=== PATIENT | female | born 1980 | race African-American/Black ===

== ENCOUNTER 2016-06-26 18:32 | Emergency (ER) | payer MEDICARE, MEDICAID ==
[~2016-06-26] VITALS: Ht 175.3 cm; Wt 144.2 kg
[~2016-06-26 18:32] MED LIST: ACET-704 PO; AMOX500T PO; AMOX875T PO; ANTI10DR7 EACH EAR; ASPI-482 PO; CARB1TAB PO; CARV12.5 PO; CEPH-264 PO; CIPR10DR AS; CIPR7.5D AS; HYDR-79 PO; HYDR-971 PO; IBUP800T PO; IRON18TA PO; LISI1TAB3 PO; LISI1TAB5 PO; NEOM10SO7 AS; PENI500T PO
[2016-06-26 18:40] VITALS: BP 144/94
== END 2016-06-26 18:40 | disposition left against medical advice (07) ==
LOC: ER 18:32
DX: Z76.5 Malingerer [conscious simulation] (principal); H92.01 Otalgia, right ear; K08.89 Other specified disorders of teeth and supporting structures; Z53.21 Procedure and treatment not carried out due to patient leaving prior to being seen by health care provider

== ENCOUNTER 2016-07-25 12:33 | Emergency (ER) | payer MEDICARE, MEDICAID ==
[~2016-07-25] VITALS: Ht 175.3 cm; Wt 136.1 kg
[2016-07-25 12:33] VITALS: BP 102/63
[~2016-07-25 12:33] MED LIST changes: -IBUP800T PO; +IBUP800T19 PO
[2016-07-25] MEDS ORDERED: IBUP800T19 PO (13:12)
--- NOTE | 2016-07-25 13:13 | PHYS DOC ---
Past History Past Medical History: CHF, Hypertension, Migraines Past Surgical History: , Other Smoking: Non-smoker Alcohol Use: None Drug Use: None Adult General Chief Complaint Chief Complaint: FLANK PAIN HPI HPI Patient is a 36-year-old female who presents with the complaint of left side pain this morning. Patient states that she has a history of passing kidney stones. She has a urologist at [facility], but her boyfriend lives in this area so she came here today. Patient states that about 4 months ago she had a 24-hour urine that had some stones in it. They told her she still has some stones in her left kidney. They told her she might need a stent but it turned out she didn't. Today she has some urinary frequency and her left side hurts. No nausea or vomiting, no fever or chills. Patient denies , she is on the Depo shot and has had a tubal ligation. Review of Systems Review of Systems Constitutional: Denies fever or chills [] Respiratory: Denies cough or shortness of breath [] GI: Denies abdominal pain, nausea, vomiting, bloody stools or diarrhea [] : As in history of present illness Musculoskeletal: Left flank pain as in history of present illness Allergies Allergies Allergies Coded Allergies Type Severity Reaction Last Updated Verified naproxen Allergy Unknown 09/30/13 Yes propoxyphene HCl Allergy Unknown 09/30/13 Yes tramadol Allergy Unknown 09/30/13 Yes Physical Exam Physical Exam Constitutional: Well developed, well nourished, no acute distress, non-toxic appearance. Morbidly obese, alert, mentating normally. HENT: Normocephalic, atraumatic, bilateral external ears normal, nose normal. [ ] Eyes: conjunctiva normal, no discharge. [] Neck: Normal range of motion, no stridor. [] Abdomen: Obese, nondistended, soft, no masses, no pulsatile masses. Mild tenderness to palpation in the left mid abdomen. No rebound or guarding. Skin: Warm, dry, no erythema, no rash. [] Back: No tenderness, no CVA tenderness. [] Extremities: No tenderness, no cyanosis, no clubbing, ROM intact, no edema. [] Neurologic: Alert and oriented X 3, normal motor function, normal sensory function, no focal deficits noted. [] Current Patient Data Lab Results Laboratory Tests Test 07/25/16 13:00 POC Urine HCG, Qualitative hcg negative (Negative) EKG EKG [] Radiology/Procedures Radiology/Procedures [] Course & Med Decision Making Course & Med Decision Making Pertinent Labs and Imaging studies reviewed. (See chart for details) 36-year-old female with a history of kidney stones presents with left flank pain and urinary frequency. Urine dip in the emergency Department positive for small amount of blood but negative for nitrites and leukocytes. Urine test negative. Patient is in no distress whatsoever. I was able to review the patient's records from [facility] and [facility]. I am familiar with this patient from seeing her at [facility]. A flank pain visit on April 30, 2016, the patient had a CT scan and was found to have 2 small likely intraparenchymal left kidney stones. These don't look like stones that she will be passing. She has had them in the past on CAT scans as well. Also noted that the patient has presented multiple times with pain related complaints to both [facility] and [place] I advised the patient that at this time I would not recommend any further radiation, I have reviewed her records and her previous CT scan. At this time I recommend pushing fluids and ibuprofen 800 mg. I discussed this with the patient and she said she does tolerate ibuprofen even though she had given an allergy to naproxen. Advised follow-up with her urologist as planned. [] Dragon Disclaimer Dragon Disclaimer This chart was dictated in whole or in part using Voice Recognition software in a busy, high-work load, and often noisy Emergency Department environment. It may contain unintended and wholly unrecognized errors or omissions. Departure Departure: Impression: Primary Impression: Left flank pain Additional Impression: Drug-seeking behavior Disposition: HOME, SELF-CARE Condition: STABLE Referrals: PCP,NO (PCP) Patient Instructions: Kidney Stones, [id number] Additional Instructions: As we discussed, I reviewed your CT scan from April 2016, which showed a couple of very tiny stones that do not look like they're likely to pass. Today, I would not recommend any further testing or exposure to radiation and I do not believe any further tests are required. Your urinalysis is negative for infection. Drink plenty of fluids. If needed for pain, ibuprofen 800 mg every 6-8 hours. Follow-up with your urologist. Scripts Ibuprofen 800 Mg Tablet1 Tab PO TID #30 TAB One every 8 hours as needed for pain Prov:CARIE JEFFERS MD 07/25/16 Problem Qualifiers CARIE JEFFERS MD Jul 25, 2016 13:13
[2016-07-25 13:15] LABS: BILIRUBIN,URINE NEG (NEG); COLOR,URINE YELLOW; GLUCOSE,URINE NEG (NEG)
[2016-07-25 13:16] LABS: CLARITY,URINE CLEAR; UROBILINOGEN,URINE 0.2 mg/dL (0.2 mg/dL)
[2016-07-25 13:17] LABS: NITRITE,URINE NEG (NEG)
== END 2016-07-25 13:15 | disposition home or self-care (01) ==
LOC: ER 12:33
DX: R10.9 Unspecified abdominal pain (principal); I11.0 Hypertensive heart disease with heart failure; I50.9 Heart failure, unspecified; G43.909 Migraine, unspecified, not intractable, without status migrainosus; Z87.442 Personal history of urinary calculi; Z76.5 Malingerer [conscious simulation]; Z88.6 Allergy status to analgesic agent; Z88.8 Allergy status to other drugs, medicaments and biological substances
CPT/HCPCS: 81003; 81025; 84703; 99282

== ENCOUNTER 2016-09-22 18:39 | Emergency (ER) | payer MEDICARE, MEDICAID ==
[~2016-09-22] VITALS: Ht 175.3 cm; Wt 136.5 kg
--- NOTE | 2016-09-22 18:53 | PHYS DOC ---
Past History Past Medical History: CHF, Hypertension, Kidney Stones, Migraines Past Surgical History: Tubal ligation Smoking: Non-smoker Alcohol Use: None Drug Use: None Adult General Chief Complaint Chief Complaint: ABSCESS HPI HPI 36-year-old female with a history of skin abscesses now presents to the emergency department with a skin abscess in her right armpit. She has a small knot which has become painful. No spontaneous drainage. It is locally tender but patient has no fevers chills sweats or shaking chills. She otherwise feels well Review of Systems Review of Systems Constitutional: Denies fever or chills [] Eyes: Denies change in visual acuity, redness, or eye pain [] HENT: Denies nasal congestion or sore throat [] Respiratory: Denies cough or shortness of breath [] Cardiovascular: No additional information not addressed in HPI [] GI: Denies abdominal pain, nausea, vomiting, bloody stools or diarrhea [] : Denies dysuria or hematuria [] Musculoskeletal: Denies back pain or joint pain [] Integument: Denies rash or skin lesions [] Neurologic: Denies headache, focal weakness or sensory changes [] Endocrine: Denies polyuria or polydipsia [] Allergies Allergies Allergies Coded Allergies Type Severity Reaction Last Updated Verified naproxen Allergy Unknown 09/30/13 Yes propoxyphene HCl Allergy Unknown 09/30/13 Yes tramadol Allergy Unknown 09/30/13 Yes Physical Exam Physical Exam Appearing patient no acute distress 1 cm abscess with trace fluctuance right axilla no surrounding erythema, warmth, or crepitus. No right upper extremity swelling or abnormality Constitutional: Well developed, well nourished, no acute distress, non-toxic appearance. [] HENT: Normocephalic, atraumatic, bilateral external ears normal, oropharynx moist, no oral exudates, nose normal. [] Eyes: PERRLA, EOMI, conjunctiva normal, no discharge. [] Neck: Normal range of motion, no tenderness, supple, no stridor. [] Cardiovascular:Heart rate regular rhythm, no murmur [] Lungs & Thorax: Bilateral breath sounds clear to auscultation [] Abdomen: Bowel sounds normal, soft, no tenderness, no masses, no pulsatile masses. [] Skin: Warm, dry, no erythema, no rash. [] Back: No tenderness, no CVA tenderness. [] Extremities: No tenderness, no cyanosis, no clubbing, ROM intact, no edema. [] Neurologic: Alert and oriented X 3, normal motor function, normal sensory function, no focal deficits noted. [] Psychologic: Affect normal, judgement normal, mood normal. [] EKG EKG [] Radiology/Procedures Radiology/Procedures [] Course & Med Decision Making Course & Med Decision Making Pertinent Labs and Imaging studies reviewed. (See chart for details) Signs and symptoms consistent with very minor early abscess right axilla. Let applied and tiny stab incision made with a #11 blade which patient tolerated well. Small amount of purulent drainage. Hemostatic after procedure. Patient tolerated well. Dressing applied and no further workup or treatment indicated. Patient aware of critical importance of compliance with antibiotics and close follow-up with PCP for reevaluation and further treatment as needed. Strict return precautions given Procedure: Incision and drainage of 1 cm right axillary abscess by ER M.Naveen. Patient sitting. Let applied. Good anesthesia. 3 mm stab incision made superficial in subcutaneously with a #11 blade. Small amount of purulent drainage. Pressure applied. Hemostatic. Patient tolerated well. No complications [] Dragon Disclaimer Dragon Disclaimer This chart was dictated in whole or in part using Voice Recognition software in a busy, high-work load, and often noisy Emergency Department environment. It may contain unintended and wholly unrecognized errors or omissions. Departure Departure: Impression: Primary Impression: Axillary abscess Referrals: KATELIN SAHA MD (PCP) Patient Instructions: Abscess, Abscess, Care After Additional Instructions: He had a very small abscess in her right armpit. This was incised and drained today. A tiny amount of pus came out. Apply warm compresses and soaks. Keep any crust or scab off the wound while its healing and encourage drainage so it heals from the inside out. Finish Bactrim as prescribed and take ibuprofen 800 mg every 6 hours as needed for pain. If he still have uncontrolled pain take one [place] every 6 hours follow-up with your doctor in 2 days for a wound check and return immediately for signs of worsening infection specifically for fevers / vomiting, other systemic signs of illness Scripts Sulfamethoxazole/Trimethoprim (BACTRIM DS TABLET) 1 Each Tablet 2 EACH PO BID for 10 Days, #40 TAB Prov: TUAN SAEED MD 09/22/16 Sulfamethoxazole/Trimethoprim (BACTRIM DS TABLET) 1 Each Tablet 1 TAB PO BID, #20 TAB Prov: TUAN SAEED MD 09/22/16 Hydrocodone/Ibuprofen (HYDROCODONE-IBUPROFEN 7.5-200 ) 1 Each Tablet 1 TAB PO PRN Q6HRS Y for PAIN, #6 TAB 0 Refills Prov: TUAN SAEED MD 09/22/16 TUAN SAEED MD Sep 22, 2016 18:53
[2016-09-22 19:03] VITALS: BP 174/98
[2016-09-22] MEDS ORDERED: LIDOCAINE/EPI/TETRACAINE TOPICAL GEL 3 ML. TP ONE (19:30)
[2016-09-22] MEDS ORDERED: HYDROcodone/APAP 5/325MG 1 TAB TABLET PO ONE (19:30)
[2016-09-22] MEDS ORDERED: HYDR-79 PO (20:10)
[2016-09-22] MEDS ORDERED: SULF1TAB24 PO (20:10)
== END 2016-09-22 20:14 | disposition home or self-care (01) ==
LOC: ER 18:39
DX: L02.411 Cutaneous abscess of right axilla (principal); I11.0 Hypertensive heart disease with heart failure; I50.9 Heart failure, unspecified; G43.909 Migraine, unspecified, not intractable, without status migrainosus; Z87.442 Personal history of urinary calculi; Z88.6 Allergy status to analgesic agent; Z88.8 Allergy status to other drugs, medicaments and biological substances
CPT/HCPCS: 10060; 99283-25

== ENCOUNTER 2016-11-13 19:08 | Emergency (ER) | payer MEDICARE, MEDICAID ==
[~2016-11-13] VITALS: Ht 175.3 cm; Wt 144.2 kg
[~2016-11-13 19:08] MED LIST changes: +SULF1TAB24 PO
[2016-11-13 19:24] VITALS: BP 158/96
[2016-11-13] MEDS ORDERED: AMOX1TAB61 PO (19:39)
--- NOTE | 2016-11-13 19:42 | PHYS DOC ---
Past History Past Medical History: Hypertension, Migraines, Other Past Surgical History: , Other Smoking: Non-smoker Alcohol Use: None Drug Use: None Adult General Chief Complaint Chief Complaint: DENTAL PROBLEM HPI HPI Patient is a 36 year old F who presents with dental pain. She has had multiple teeth removed in the past. She states that her left lower canine has been intermittently hurting for approximately 4 weeks. She states that she is able to chew on that side of her mouth. She does have a dentist to follow-up with but has had family issues making it difficult for her to see her dentist. No other symptoms noted. Review of Systems Review of Systems Constitutional: Denies fever or chills [] Eyes: Denies change in visual acuity, redness, or eye pain [] HENT: Denies nasal congestion or sore throat [] Respiratory: Denies cough or shortness of breath [] Cardiovascular: No additional information not addressed in HPI [] GI: Denies abdominal pain, nausea, vomiting, bloody stools or diarrhea [] : Denies dysuria or hematuria [] Musculoskeletal: Denies back pain or joint pain [] Integument: Denies rash or skin lesions [] Neurologic: Denies headache, focal weakness or sensory changes [] Endocrine: Denies polyuria or polydipsia [] Family History Family History Noncontributory Current Medications Current Medications Reviewed Allergies Allergies Allergies Coded Allergies Type Severity Reaction Last Updated Verified naproxen Allergy Unknown 09/22/16 Yes propoxyphene HCl Allergy Unknown 09/22/16 Yes tramadol Allergy Unknown 09/22/16 Yes Physical Exam Physical Exam Constitutional: Well developed, well nourished, no acute distress, non-toxic appearance. [] HENT: Normocephalic, atraumatic, bilateral external ears normal, oropharynx moist, no oral exudates, nose normal. [] Molars and premolars removed on the lower right and left. Left lower canine reported to have pain without obvious signs of cavity or come disease. Pain noted with palpation Eyes: PERRLA, EOMI, conjunctiva normal, no discharge. [] Cardiovascular:Heart rate regular rhythm, no murmur [] Lungs & Thorax: Bilateral breath sounds clear to auscultation [] Skin: Warm, dry, no erythema, no rash. [] Extremities: No tenderness, no cyanosis, no clubbing, ROM intact, no edema. [] Neurologic: Alert and oriented X 3, normal motor function, normal sensory function, no focal deficits noted. [] Psychologic: Affect normal, judgement normal, mood normal. [] Current Patient Data Vital Signs Vital Signs Date Time Temp Pulse Resp B/P (MAP) Pulse Ox O2 Delivery O2 Flow Rate FiO2 11/13/16 19:24 98.2 96 20 99 Room Air Course & Med Decision Making Course & Med Decision Making Pertinent Labs and Imaging studies reviewed. (See chart for details) Dragon Disclaimer Dragon Disclaimer This chart was dictated in whole or in part using Voice Recognition software in a busy, high-work load, and often noisy Emergency Department environment. It may contain unintended and wholly unrecognized errors or omissions. Departure Departure: Impression: Primary Impression: Pain, dental Disposition: HOME, SELF-CARE Condition: STABLE Referrals: KATELIN SAHA MD (PCP) Patient Instructions: Dental Caries Additional Instructions: Clifton was seen in the emergency room for dental pain. No emergency medical condition was found on history or physical exam. Her symptoms are suspicious for a dental infection for which she was given an antibiotic. She was advised to follow-up with her dentist as soon as possible for further management. Scripts Amoxicillin/Potassium Clav (AUGMENTIN 875-125 TABLET) 1 Each Tablet 1 TAB PO BID for 14 Days, #28 TAB Prov: DANIELLE REDD MD 11/13/16 DANIELLE REDD MD Nov 13, 2016 19:41
== END 2016-11-13 19:50 | disposition home or self-care (01) ==
LOC: ER 19:08
DX: K08.89 Other specified disorders of teeth and supporting structures (principal); I10 Essential (primary) hypertension; G43.909 Migraine, unspecified, not intractable, without status migrainosus; Z88.6 Allergy status to analgesic agent; Z88.8 Allergy status to other drugs, medicaments and biological substances
CPT/HCPCS: 99283

== ENCOUNTER 2017-01-30 16:33 | Emergency (ER) | payer MEDICARE, MEDICAID ==
[~2017-01-30] VITALS: Ht 175.3 cm; Wt 144.2 kg
[~2017-01-30 16:33] MED LIST changes: +AMOX1TAB61 PO
[2017-01-30 17:00] VITALS: BP 186/110
[2017-01-30] MEDS ORDERED: HYDR-971 PO (17:21)
[2017-01-30] MEDS ORDERED: CLIN150C14 PO (17:21)
--- NOTE | 2017-01-30 17:21 | PHYS DOC ---
Past History Past Medical History: Hypertension, Migraines, Other Past Surgical History: , Other Smoking: Non-smoker Alcohol Use: None Drug Use: None Adult General Chief Complaint Chief Complaint: DENTAL PROBLEM HPI HPI Patient is a 37 year old female who presents with dental pain. The patient reports 2 day history of pain to left mandibular tooth with jaw swelling. Denies fevers/chills, nausea vomiting, drainage, trismus. Also reports painful swelling to right axilla which is a recurrent problem. Denies fevers, drainage. She has history of hypertension & reports compliance with her medications, denies headache, chest pain, shortness of breath, neuro deficit. Review of Systems Review of Systems Constitutional: Denies fever or chills Eyes: Denies change in visual acuity HENT: Denies nasal congestion or sore throat, reports dental pain Respiratory: Denies cough or shortness of breath Cardiovascular: Denies chest pain GI: Denies abdominal pain, nausea, vomiting Musculoskeletal: Denies back pain or joint pain Integument: Reports skin problem in axilla Neurologic: Denies headache, focal weakness or sensory changes Allergies Allergies Allergies Coded Allergies Type Severity Reaction Last Updated Verified naproxen Allergy Unknown 09/22/16 Yes propoxyphene HCl Allergy Unknown 09/22/16 Yes tramadol Allergy Unknown 09/22/16 Yes Physical Exam Physical Exam Constitutional: obese, no acute distress, non-toxic appearance. HENT: Normocephalic, atraumatic, bilateral external ears normal, oropharynx moist, nose normal. tooth #24 with mild surrounding gingival erythema, jaw swelling is present no trismus. Eyes: conjunctiva normal, no discharge. Cardiovascular: no edema. Lungs & Thorax: no respiratory distress. Abdomen: nondistended. Skin: right axilla tiny inflamed hair follicle with surrounding mild induration , no palpable abscess. Back: No tenderness. Extremities: No tenderness, no edema. Neurologic: Alert and oriented X 3, no focal deficits noted. Psychologic: Affect normal, judgement normal, mood normal. EKG EKG [] Radiology/Procedures Radiology/Procedures [] Course & Med Decision Making Course & Med Decision Making Pertinent Labs and Imaging studies reviewed. (See chart for details) The patient presents with dental pain & folliculitis. Gave prescription for clindamycin to cover for both. Recommend ibuprofen for pain, norco for severe pain, follow up with dentist & general surgery or PCP in 2-3 days. BP elevated here but she is asymptomatic, recommend compliance with meds, can be rechecked by PCP at time of follow up. Come back for difficulty breathing or swallowing, worsening cellulitis surrounding folliculitis, any otherwise worsening condition. Discharged home in stable condition. Dragon Disclaimer Dragon Disclaimer This chart was dictated in whole or in part using Voice Recognition software in a busy, high-work load, and often noisy Emergency Department environment. It may contain unintended and wholly unrecognized errors or omissions. Departure Departure: Impression: Primary Impression: Dentalgia Additional Impression: Folliculitis of right axilla Disposition: HOME, SELF-CARE Condition: STABLE Referrals: KATELIN SAHA MD (PCP) Patient Instructions: Dental Pain, [id number], Folliculitis Additional Instructions: You were seen in the emergency department today for dental pain & infected hair follicle. Please take the prescribed antibiotic. Continue ibuprofen for pain/ inflammation, use norco for severe breakthrough pain; no drinking alcohol or driving while taking norco. Follow up with a dentist as soon as possible for dental pain/infection, agree with plan to follow up with Dr. Fernandez for recurrent infections of armpit. Come back for high fever, uncontrolled vomiting , difficulty breathing or swallowing, or any otherwise worsening condition. Scripts Hydrocodone Bit/Acetaminophen (NORCO 5-325 TABLET) 1 Each Tablet 1-2 TAB PO Q4-6HRS Y for SEVERE PAIN, #10 TAB Prov: BERNARD ROBBINS MD 01/30/17 Clindamycin Hcl (CLINDAMYCIN HCL) 150 Mg Capsule 3 CAP PO TID for 7 Days, #63 CAP Prov: BERNARD ROBBINS MD 01/30/17 Problem Qualifiers BERNARD ROBBINS MD Jan 30, 2017 17:21
[2017-01-30] MEDS ORDERED: CLINDAMYCIN HCL 150 MG CAPSULE PO ONE (17:30)
[2017-01-30] MEDS ORDERED: HYDROcodone/APAP 5/325MG 1 TAB TABLET PO ONE (17:30)
== END 2017-01-30 17:33 | disposition home or self-care (01) ==
LOC: ER 16:33
DX: K08.89 Other specified disorders of teeth and supporting structures (principal); L02.421 Furuncle of right axilla; I10 Essential (primary) hypertension; G43.909 Migraine, unspecified, not intractable, without status migrainosus; Z88.6 Allergy status to analgesic agent; Z88.8 Allergy status to other drugs, medicaments and biological substances
CPT/HCPCS: 99283

== ENCOUNTER 2017-03-13 17:48 | Emergency (ER) | payer MEDICARE, MEDICAID ==
[~2017-03-13] VITALS: Ht 175.3 cm; Wt 144.2 kg
[~2017-03-13 17:48] MED LIST changes: +CLIN150C14 PO
[2017-03-13 17:50] VITALS: BP 166/122
--- NOTE | 2017-03-13 18:48 | ED.ADGEN ---
Past History Past Medical History: Hypertension, Migraines, Other Past Surgical History: , Other Smoking: Non-smoker Alcohol Use: None Drug Use: None Adult General Chief Complaint Chief Complaint "This tooth is hurting .. I got a dental apt... but my face is swollen HPI HPI Patient is a 37 year old female who presents with above hx and complaints of pain and edema of area of tooth 21. No trismus. No adenopathy at ankle jaw. Does have swelling over mandible on the left. No history immunosuppression. No history of travel. Does have a follow-up dental appointment. Review of Systems Review of Systems Constitutional: Denies fever or chills [] Eyes: Denies change in visual acuity, redness, or eye pain [] HENT: Denies nasal congestion or sore throat []complaints of dental pain Respiratory: Denies cough or shortness of breath [] Cardiovascular: No additional information not addressed in HPI [] GI: Denies abdominal pain, nausea, vomiting, bloody stools or diarrhea [] : Denies dysuria or hematuria [] Musculoskeletal: Denies back pain or joint pain [] Integument: Denies rash or skin lesions [] Neurologic: Denies headache, focal weakness or sensory changes [] Endocrine: Denies polyuria or polydipsia [] All other systems were reviewed and found to be within normal limits, except as documented in this note. Family History Family History Noncontributory Current Medications Current Medications Current Medications Medications (Trade) Dose Ordered Sig/Jaden Start Time Stop Time Status Last Admin Dose Admin Cephalexin HCl (Keflex) 500 mg 1X ONCE 03/13/17 18:45 03/13/17 18:48 DC 03/13/17 18:59 500 MG Oxycodone/ Acetaminophen (Percocet 10/325) 1 tab 1X ONCE 03/13/17 18:45 03/13/17 18:49 DC 03/13/17 18:59 1 TAB Allergies Allergies Allergies Coded Allergies Type Severity Reaction Last Updated Verified naproxen Allergy Unknown 09/22/16 Yes propoxyphene HCl Allergy Unknown 09/22/16 Yes tramadol Allergy Unknown 09/22/16 Yes Physical Exam Physical Exam Constitutional: inacute distress, non-toxic appearance. [] HENT: Normocephalic, atraumatic, bilateral external ears normal, oropharynx moist, no oral exudates, nose normal. Dental exam as per history of present illness Eyes: PERRLA, EOMI, conjunctiva normal, no discharge. [] Neck: Normal range of motion, no tenderness, supple, no stridor. [] Cardiovascular:Heart rate regular rhythm, no murmur [] Lungs & Thorax: Bilateral breath sounds clear to auscultation [] Abdomen: Bowel sounds normal, soft, no tenderness, no masses, no pulsatile masses. Scar. Obese Skin: Warm, dry, no erythema, no rash. [] Back: No tenderness, no CVA tenderness. [] Extremities: No tenderness, no cyanosis, no clubbing, ROM intact, no edema. [] Neurologic: Alert and oriented X 3, normal motor function, normal sensory function, no focal deficits noted. [] Psychologic: Affect anxious, judgement normal, mood normal. [] Current Patient Data Vital Signs Vital Signs Date Time Temp Pulse Resp B/P (MAP) Pulse Ox O2 Delivery O2 Flow Rate FiO2 03/13/17 19:00 98.5 110 20 142/101 (115) 99 Room Air EKG EKG [] Radiology/Procedures Radiology/Procedures [] Course & Med Decision Making Course & Med Decision Making Pertinent Labs and Imaging studies reviewed. (See chart for details). Take Keflex 500 mg 3 times a day x 10 days. . May take Tylenol and ibuprofen for pain. For marked pain may take Percocet up 4 times a day. Follow-up with James. Return if any concerns. [] Final Impression Final Impression 1. Dental pain[] Problems: Dragon Disclaimer Dragon Disclaimer This electronic medical record was generated, in whole or in part, using a voice recognition dictation system. PRINCESS ARCHIBALD MD Mar 13, 2017 18:47
[2017-03-13] MEDS ORDERED: OXYC-328 PO (18:49)
[2017-03-13] MEDS ORDERED: CEPH-264 PO (18:49)
[2017-03-13] MEDS: CEPHALEXIN 250 MG CAPSULE PO ONE (18:59)
[2017-03-13] MEDS: oxyCODONE/APAP 10/325 1 TAB TABLET PO ONE (18:59)
== END 2017-03-13 19:05 | disposition home or self-care (01) ==
LOC: ER 17:48
DX: K08.89 Other specified disorders of teeth and supporting structures (principal); I10 Essential (primary) hypertension; G43.909 Migraine, unspecified, not intractable, without status migrainosus; Z88.6 Allergy status to analgesic agent; Z88.8 Allergy status to other drugs, medicaments and biological substances
CPT/HCPCS: 99283

== ENCOUNTER 2017-03-26 18:10 | Emergency (ER) | payer MEDICARE, MEDICAID ==
[~2017-03-26] VITALS: Ht 175.3 cm; Wt 144.2 kg
[~2017-03-26 18:10] MED LIST changes: +OXYC-328 PO
[2017-03-26] MEDS ORDERED: AZIT1PAC PO (18:26)
--- NOTE | 2017-03-26 18:27 | PHYS DOC ---
Past History Past Medical History: Hypertension, Migraines, Other Past Surgical History: , Other Smoking: Non-smoker Alcohol Use: None Drug Use: None Adult General Chief Complaint Chief Complaint: EARACHE/EAR PAIN HPI HPI Patient is a 37 year old F who presents with left ear pain and drainage. Patient states that since Celena which was approximately 4 days ago she did have an increase left ear pain and increased drainage since yesterday. Patient denies any fevers. Patient denies any difficulty swallowing. Patient denies any headache or vision changes. Patient denies any chest pain or shortness of breath. Patient has no other complaints at this time. Review of Systems Review of Systems GEN: Denies fevers, chills, sweats HEENT: Left ear pain CV: Denies chest pain RESP: Denies shortness of air, cough GI: Denies n/v/d NEURO: Denies confusion, dizziness MSK: Denies weakness, joint pain/swelling All other systems were reviewed and found to be within normal limits, except as documented in this note. Allergies Allergies Allergies Coded Allergies Type Severity Reaction Last Updated Verified naproxen Allergy Unknown 09/22/16 Yes propoxyphene HCl Allergy Unknown 09/22/16 Yes tramadol Allergy Unknown 09/22/16 Yes Physical Exam Physical Exam GEN.: No apparent distress. Alert and oriented. HEENT: Head is normocephalic, atraumatic, right TM clear, left TM is cloudy with purulent drainage consistent with otitis media NECK: Supple. LUNGS: CTAB. HEART: RRR, S1, S2 present. Peripheral pulses intact ABDOMEN: Soft, nontender. Positive bowel sounds. EXTREMITIES: Without any cyanosis. NEUROLOGIC: Normal speech, normal tone PSYCHIATRIC: Normal affect, normal mood. SKIN: No ulcerations EKG EKG [] Radiology/Procedures Radiology/Procedures [] Course & Med Decision Making Course & Med Decision Making Pertinent Labs and Imaging studies reviewed. (See chart for details) MDM: After reviewing the chart, CC/HPI/PMH, physical exam, I do not believe the patient has a severe bacterial infection warranting further workup and/or admission at this time. I believe patient has a simple left ear infection treated oral antibiotics and discharged home. Additional verbal discharge instructions were provided to the patient and that if symptoms get worse or any new symptoms arise that are worrisome to the patient she is to return to the emergency room immediately [] Dragon Disclaimer Lilian Disclaimer This electronic medical record was generated, in whole or in part, using a voice recognition dictation system. Departure Departure: Impression: Primary Impression: Left serous otitis media Disposition: HOME, SELF-CARE Condition: IMPROVED Referrals: PCP,NO (PCP) Patient Instructions: Otitis Media, Adult Additional Instructions: Please follow-up with your family physician in the next one to 2 days and return if symptoms increase Scripts Azithromycin (ZITHROMAX PACKET) 1 Gm Packet 1 PACKET PO ONCE, #1 PACKET Prov: BOBBI TRISTAN DO 03/26/17 BOBBI TRISTAN DO Mar 26, 2017 18:27
[2017-03-26 18:31] VITALS: BP 126/83
== END 2017-03-26 18:31 | disposition home or self-care (01) ==
LOC: ER 18:10
DX: H65.92 Unspecified nonsuppurative otitis media, left ear (principal); I10 Essential (primary) hypertension; G43.909 Migraine, unspecified, not intractable, without status migrainosus; Z88.6 Allergy status to analgesic agent; Z88.8 Allergy status to other drugs, medicaments and biological substances
CPT/HCPCS: 99283

== ENCOUNTER 2017-05-01 20:15 | Emergency (ER) | payer MEDICARE, MEDICAID ==
[~2017-05-01] VITALS: Ht 175.3 cm; Wt 144.2 kg
[~2017-05-01 20:15] MED LIST changes: +AZIT1PAC PO
--- NOTE | 2017-05-01 20:21 | PHYS DOC ---
Past History Past Medical History: Hypertension, Migraines, Other Past Surgical History: , Tubal ligation, Other Smoking: Non-smoker Alcohol Use: None Drug Use: None Adult General Chief Complaint Chief Complaint: EARACHE/EAR PAIN HPI HPI Patient is a 37 year old female who presents with in your pain. She states it started about a week ago she noticed yesterday some ear discharge out of the left side. She also complains of some dental pain. She denies any fevers chills nausea vomiting. She denies any changes in voice troubles eating or swallowing. She has an ears nose and throat physician and started taking neomycin eardrops yesterday. Review of Systems Review of Systems Constitutional: Denies fever or chills [] Eyes: Denies change in visual acuity, redness, or eye pain [] HENT: Denies nasal congestion or sore throat [] Respiratory: Denies cough or shortness of breath [] Cardiovascular: No additional information not addressed in HPI [] GI: Denies abdominal pain, nausea, vomiting, bloody stools or diarrhea [] : Denies dysuria or hematuria [] Musculoskeletal: Denies back pain or joint pain [] Integument: Denies rash or skin lesions [] Neurologic: Denies headache, focal weakness or sensory changes [] Endocrine: Denies polyuria or polydipsia [] All other systems were reviewed and found to be within normal limits, except as documented in this note. Allergies Allergies Allergies Coded Allergies Type Severity Reaction Last Updated Verified naproxen Allergy Unknown 09/22/16 Yes propoxyphene HCl Allergy Unknown 09/22/16 Yes tramadol Allergy Unknown 09/22/16 Yes Physical Exam Physical Exam Constitutional: Well developed, well nourished, no acute distress, non-toxic appearance. [] HENT: Normocephalic, atraumatic, bilateral external ears normal, oropharynx moist, no oral exudates, nose normal. Left TM mildly injected, right TM clear, posterior pharynx clear, tender palpation in the left lower jaw around tooth #20 , no apical abscess or mass appreciated, no Darrion angina noted, patient handling secretions without difficulty Eyes: PERRLA, EOMI, conjunctiva normal, no discharge. [] Neck: Normal range of motion, no tenderness, supple, no stridor. [] Cardiovascular:Heart rate regular rhythm, no murmur [] Lungs & Thorax: Bilateral breath sounds clear to auscultation [] Abdomen: Bowel sounds normal, soft, no tenderness, no masses, no pulsatile masses. [] Skin: Warm, dry, no erythema, no rash. [] Back: No tenderness, no CVA tenderness. [] Extremities: No tenderness, no cyanosis, no clubbing, ROM intact, no edema. [] Neurologic: Alert and oriented X 3, normal motor function, normal sensory function, no focal deficits noted. [] Psychologic: Affect normal, judgement normal, mood normal. [] EKG EKG [] Radiology/Procedures Radiology/Procedures [] Impressions: Left otitis media Dental pain Course & Med Decision Making Course & Med Decision Making Pertinent Labs and Imaging studies reviewed. (See chart for details) We'll give 1 dose of Augmentin 875 here and discharged with 10 days of Augmentin in addition to 12 tablets of 5/325 Salem. Return precautions given. She is to follow-up with her ENT within the next 5 days. She is agreeable to the plan and being discharged in stable condition at this time. Dragon Disclaimer Dragon Disclaimer This electronic medical record was generated, in whole or in part, using a voice recognition dictation system. Departure Departure: Impression: Primary Impression: Otitis media Disposition: 01 HOME, SELF-CARE Condition: STABLE Referrals: PCPBETTE (PCP) Patient Instructions: Otitis Media, Adult, [id number] Additional Instructions: Your ear looks infected and you will need take antibiotics for the next 10 days. Your being discharged with Augmentin which is an antibiotic, You will need to take it twice a day. You can also take Salem for your pain. Salem is a narcotic pain medicine and can impair your judgment and make you sleepy. Please don't drive or drink alcohol while taking this medicine. If your pain gets worse , you become confused, you develop high fevers, neck stiffness or other concerns please return back to emergency department. You will need to follow-up with her ears nose and throat physician within the next 5 days. Scripts Amoxicillin/Potassium Clav (AUGMENTIN 875-125 TABLET) 1 Each Tablet 1 TAB PO BID, #20 TAB Prov: ANALIA LEAHY MD 05/01/17 Hydrocodone Bit/Acetaminophen (NORCO 5-325 TABLET) 1 Each Tablet 1-2 TAB PO PRN Q6HRS Y for PAIN, #12 TAB 0 Refills Prov: ANALIA LEAHY MD 05/01/17 Problem Qualifiers Primary Impression: Otitis media Otitis media type: unspecified Chronicity: acute Qualified Codes: H66.90 - Otitis media, unspecified, unspecified ear ANALIA LEAHY MD May 01, 2017 20:21
[2017-05-01] MEDS ORDERED: AMOX1TAB61 PO (20:34)
[2017-05-01] MEDS ORDERED: HYDR-971 PO (20:34)
[2017-05-01 20:39] VITALS: BP 130/86
[2017-05-01] MEDS ORDERED: AMOXICILLIN/K CLAV 875/125MG TABLET. PO ONE (21:00)
== END 2017-05-01 20:39 | disposition home or self-care (01) ==
LOC: ER 20:15
DX: H66.92 Otitis media, unspecified, left ear (principal); I10 Essential (primary) hypertension; G43.909 Migraine, unspecified, not intractable, without status migrainosus; Z88.6 Allergy status to analgesic agent; Z88.8 Allergy status to other drugs, medicaments and biological substances
CPT/HCPCS: 99283

== ENCOUNTER 2017-06-05 20:14 | Emergency (ER) | payer MEDICARE, MEDICAID ==
[~2017-06-05] VITALS: Ht 175.3 cm; Wt 144.2 kg
--- NOTE | 2017-06-05 21:01 | ED.ADGEN ---
Past History Past Medical History: Hypertension, Migraines, Other Past Surgical History: , Tubal ligation, Other Smoking: Non-smoker Alcohol Use: None Drug Use: None Adult General Chief Complaint Chief Complaint " I got this bump under my arm...I usually have to get started on bactrim.. and my BP is up because it hurts...and I ve not taken my BP meds...' HPI HPI Patient is a 37 year old female who presents with adenopathy and cellulitis under Rt. axillary. Patient has had problems previously with cellulitis and adenopathy and abscesses under her axillary areas after shaving. Patient denies any history of immunosuppression. Patient denies any travel. Patient up- to-date with vaccinations normally follows at [facility] for care. Review of Systems Review of Systems Constitutional: Denies fever or chills [] Eyes: Denies change in visual acuity, redness, or eye pain [] HENT: Denies nasal congestion or sore throat [] Respiratory: Denies cough or shortness of breath [] Cardiovascular: No additional information not addressed in HPI [] GI: Denies abdominal pain, nausea, vomiting, bloody stools or diarrhea [] : Denies dysuria or hematuria [] Musculoskeletal: Denies back pain or joint pain [] Integument: Right axillary cellulitis and adenopathy Neurologic: Denies headache, focal weakness or sensory changes [] Endocrine: Denies polyuria or polydipsia [] All other systems were reviewed and found to be within normal limits, except as documented in this note. Family History Family History Noncontributory Current Medications Current Medications Current Medications Medications (Trade) Dose Ordered Sig/Jaden Start Time Stop Time Status Last Admin Dose Admin Hydrocodone Bitartrate/ Ibuprofen (Vicoprofen 7.5-200) 1 tab STK-MED ONCE 06/05/17 21:33 06/05/17 21:34 DC Trimethoprim/ Sulfamethoxazole (Bactrim Ds) 1 tab STK-MED ONCE 06/05/17 21:32 06/05/17 21:33 DC Allergies Allergies Allergies Coded Allergies Type Severity Reaction Last Updated Verified naproxen Allergy Intermediate 06/05/17 Yes propoxyphene HCl Allergy Intermediate 06/05/17 Yes tramadol Allergy Intermediate 06/05/17 Yes Physical Exam Physical Exam Constitutional: Mild distress, non-toxic appearance. [] HENT: Normocephalic, atraumatic, bilateral external ears normal, oropharynx moist, no oral exudates, nose normal. [] Eyes: PERRLA, EOMI, conjunctiva normal, no discharge. [] Neck: Normal range of motion, no tenderness, supple, no stridor. More than 17 inches circumference Cardiovascular:Heart rate regular rhythm, no murmur [] Lungs & Thorax: Bilateral breath sounds clear to auscultation [] No obvious breast lesions appreciated. Abdomen: Bowel sounds normal, soft, no tenderness, no masses, no pulsatile masses. Morbid obesity. Old surgery scars. Skin: Warm, dry, no erythema, no rash. [ Rt. axillary cellulitis Back: No tenderness, no CVA tenderness. [] Extremities: Rt. axillary tenderness, no cyanosis, no clubbing, ROM intact, no edema. [] Neurologic: Alert and oriented X 3, normal motor function, normal sensory function, no focal deficits noted. [] Psychologic: Affect anxious, judgement normal, mood normal. [] Current Patient Data Vital Signs Vital Signs Date Time Temp Pulse Resp B/P (MAP) Pulse Ox O2 Delivery O2 Flow Rate FiO2 06/05/17 20:30 97.7 101 20 99 Room Air EKG EKG [] Radiology/Procedures Radiology/Procedures [] Course & Med Decision Making Course & Med Decision Making Pertinent Labs and Imaging studies reviewed. (See chart for details) patient take Bactrim DS twice a day for the next 10 days. Patient to not shave axillary areas. Patient to follow-up at [facility]. Patient return if any concerns. Patient to take her hypertensive meds as directed. Patient return if any concerns. Patient encouraged to get mammogram. And instructed that axillary adenopathy may represent a breast disorder such as cancer and must follow-up. Patient instructed to not use anti perspiration deodorant[s] Final Impression Final Impression 1. Cellulitis 2. HTN[] Problems: Dragon Disclaimer Dragon Disclaimer This electronic medical record was generated, in whole or in part, using a voice recognition dictation system. PRINCESS ARCHIBALD MD Jun 05, 2017 21:00
[2017-06-05] MEDS ORDERED: SULF1TAB24 PO (21:05)
[2017-06-05] MEDS ORDERED: HYDR-79 PO (21:05)
[2017-06-05 21:30] VITALS: BP 148/84
[2017-06-05] MEDS ORDERED: SMZ/TMP 800/160MG TABLET. PO ONE ×2 (21:32→22:00)
[2017-06-05] MEDS ORDERED: HYDROcodon/IBUPROFEN 7.5/200MG 1 TAB TABLET ONE (21:33)
[2017-06-05] MEDS ORDERED: HYDROcodon/IBUPROFEN 7.5/200MG 1 TAB TABLET PO ONE (21:45)
== END 2017-06-05 21:36 | disposition home or self-care (01) ==
LOC: ER 20:14
DX: L03.111 Cellulitis of right axilla (principal); R59.9 Enlarged lymph nodes, unspecified; I10 Essential (primary) hypertension; G43.909 Migraine, unspecified, not intractable, without status migrainosus; Z88.6 Allergy status to analgesic agent; Z88.8 Allergy status to other drugs, medicaments and biological substances
CPT/HCPCS: 99283

== ENCOUNTER 2017-06-26 18:25 | Emergency (ER) | payer MEDICAID, MEDICARE ==
[~2017-06-26] VITALS: Ht 175.3 cm; Wt 144.2 kg
[2017-06-26 18:46] VITALS: BP 153/120
[2017-06-26] MEDS ORDERED: PENICILLIN V K 250 MG TABLET. PO ONE (19:00)
[2017-06-26] MEDS ORDERED: KETOROLAC 60 MG/2 ML VIAL. IM ONE (19:00)
[2017-06-26] MEDS ORDERED: PENI500T PO (19:08)
--- NOTE | 2017-06-26 19:08 | PHYS DOC ---
Past History Past Medical History: CAD, Hypertension, Migraines, Other Past Surgical History: , Tubal ligation, Other Smoking: Non-smoker Alcohol Use: None Drug Use: None Adult General Chief Complaint Chief Complaint: FACE PROBLEM HPI HPI Patient is a [age] year old [sex] who presents with [] Review of Systems Review of Systems Constitutional: Denies fever or chills [] Eyes: Denies change in visual acuity, redness, or eye pain [] HENT: Denies nasal congestion or sore throat [] Respiratory: Denies cough or shortness of breath [] Cardiovascular: No additional information not addressed in HPI [] GI: Denies abdominal pain, nausea, vomiting, bloody stools or diarrhea [] : Denies dysuria or hematuria [] Musculoskeletal: Denies back pain or joint pain [] Integument: Denies rash or skin lesions [] Neurologic: Denies headache, focal weakness or sensory changes [] Endocrine: Denies polyuria or polydipsia [] All other systems were reviewed and found to be within normal limits, except as documented in this note. Current Medications Current Medications Current Medications Medications (Trade) Dose Ordered Sig/Jaden Start Time Stop Time Status Last Admin Dose Admin Ketorolac Tromethamine (Toradol) 30 mg 1X ONCE 06/26/17 19:00 06/26/17 19:01 UNV Penicillin V Potassium (Veetid) 500 mg 1X ONCE 06/26/17 19:00 06/26/17 19:01 UNV Allergies Allergies Allergies Coded Allergies Type Severity Reaction Last Updated Verified naproxen Allergy Intermediate 06/05/17 Yes propoxyphene HCl Allergy Intermediate 06/05/17 Yes tramadol Allergy Intermediate 06/05/17 Yes Physical Exam Physical Exam Constitutional: Well developed, well nourished, no acute distress, non-toxic appearance. [] HENT: Normocephalic, atraumatic, bilateral external ears normal, oropharynx moist, no oral exudates, nose normal. [] Eyes: PERRLA, EOMI, conjunctiva normal, no discharge. [] Neck: Normal range of motion, no tenderness, supple, no stridor. [] Cardiovascular:Heart rate regular rhythm, no murmur [] Lungs & Thorax: Bilateral breath sounds clear to auscultation [] Abdomen: Bowel sounds normal, soft, no tenderness, no masses, no pulsatile masses. [] Skin: Warm, dry, no erythema, no rash. [] Back: No tenderness, no CVA tenderness. [] Extremities: No tenderness, no cyanosis, no clubbing, ROM intact, no edema. [] Neurologic: Alert and oriented X 3, normal motor function, normal sensory function, no focal deficits noted. [] Psychologic: Affect normal, judgement normal, mood normal. [] Current Patient Data Vital Signs Vital Signs Date Time Temp Pulse Resp B/P (MAP) Pulse Ox O2 Delivery O2 Flow Rate FiO2 06/26/17 18:46 98.1 92 20 99 Room Air EKG EKG [] Radiology/Procedures Radiology/Procedures [] Course & Med Decision Making Course & Med Decision Making Pertinent Labs and Imaging studies reviewed. (See chart for details) [] Dragon Disclaimer Dragon Disclaimer This electronic medical record was generated, in whole or in part, using a voice recognition dictation system. Departure Departure: Impression: Primary Impression: Dentalgia Disposition: HOME, SELF-CARE Condition: GOOD Referrals: PCP,NO (PCP) Patient Instructions: Toothache-Brief Additional Instructions: You have a toothache. This may be from a dental infection see you been given penicillin and antibiotic. Finish penicillin as prescribed 4 times a day for 10 days. If you have discomfort take ibuprofen 800 mg every 6 hours and Tylenol as well as needed. Use an ice pack it necessary. Follow-up with the dentist in 2 days. Scripts Penicillin V Potassium (PENICILLIN V POTASSIUM) 500 Mg Tablet 1 TAB PO QID, #40 TAB Prov: TUAN SAEED MD 06/26/17 TUAN SAEED MD Jun 26, 2017 19:08
== END 2017-06-26 19:00 | disposition home or self-care (01) ==
LOC: ER 18:25
DX: K08.89 Other specified disorders of teeth and supporting structures (principal); G43.909 Migraine, unspecified, not intractable, without status migrainosus; I10 Essential (primary) hypertension; I25.10 Atherosclerotic heart disease of native coronary artery without angina pectoris; Z88.6 Allergy status to analgesic agent; Z88.8 Allergy status to other drugs, medicaments and biological substances
CPT/HCPCS: 99283

== ENCOUNTER 2017-07-10 21:16 | Emergency (ER) | payer MEDICAID ==
[~2017-07-10] VITALS: Ht 175.3 cm; Wt 144.2 kg
--- NOTE | 2017-07-10 21:19 | ED.ADGEN ---
Past History Past Medical History: CAD, Hypertension, Migraines, Other Past Surgical History: , Tubal ligation, Other Smoking: Non-smoker Alcohol Use: None Drug Use: None Adult General Chief Complaint Chief Complaint " I got bad dental pain... 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 " I have been seen at [facility] too...but this tooth is really killing me... and now my jaw is swollen or the Lt....I probably need some antibiotics..." HPI HPI Mrs. Clifton Curtis is a 37 yr old with above hx and complaints. Pt. has obvious swollen low mandible on Lt. . Pt. has point tenderness and swollen gum line at tooth 21. No trismus.. Adenopathy at Lt mandible angle. Other areas of dental decay noted. No hx of immunosuppression. No travel. No IV drug use. Pt. thinks her Tetanus is up to date. Review of Systems Review of Systems Constitutional: Denies fever or chills [] Eyes: Denies change in visual acuity, redness, or eye pain [] HENT: Denies nasal congestion or sore throat []Complaint of dental pain and swollen mandible on Lt. Respiratory: Denies cough or shortness of breath [] Cardiovascular: No additional information not addressed in HPI [] GI: Denies abdominal pain, nausea, vomiting, bloody stools or diarrhea [] : Denies dysuria or hematuria [] Musculoskeletal: Denies back pain or joint pain [] Integument: Denies rash or skin lesions [] Neurologic: Denies headache, focal weakness or sensory changes [] Endocrine: Denies polyuria or polydipsia [] All other systems were reviewed and found to be within normal limits, except as documented in this note. Family History Family History Non-contributory Current Medications Current Medications Current Medications Medications (Trade) Dose Ordered Sig/Jaden Start Time Stop Time Status Last Admin Dose Admin Ceftriaxone Sodium (Rocephin Im) 1 gm 1X ONCE 07/10/17 22:00 07/10/17 22:00 DC 07/10/17 21:48 1 GM Oxycodone/ Acetaminophen (Percocet 5/325) 2 tab 1X ONCE 07/10/17 22:00 07/10/17 22:00 DC 07/10/17 21:49 2 TAB Allergies Allergies Allergies Coded Allergies Type Severity Reaction Last Updated Verified naproxen Allergy Intermediate 06/05/17 Yes propoxyphene HCl Allergy Intermediate 06/05/17 Yes tramadol Allergy Intermediate 06/05/17 Yes Physical Exam Physical Exam Constitutional: Moderately acute distress, non-toxic appearance. [] HENT: Normocephalic, atraumatic, bilateral external ears normal, oropharynx moist, no oral exudates, nose normal. []Dental pain as per HPI Eyes: PERRLA, EOMI, conjunctiva normal, no discharge. [] Neck: Normal range of motion, no tenderness, supple, no stridor. [] Cardiovascular:Heart rate regular rhythm, no murmur [] Lungs & Thorax: Bilateral breath sounds equal at apex on auscultation [] Abdomen: Bowel sounds normal, soft, no tenderness, no masses, no pulsatile masses. [] Obese. Skin: Warm, dry, no erythema, no rash. [] Back: No tenderness, no CVA tenderness. [] Extremities: No tenderness, no cyanosis, no clubbing, ROM intact, ankle edema. [ ] Neurologic: Alert and oriented X 3, normal motor function, normal sensory function, no focal deficits noted. [] Psychologic: Affect anxiousl, judgement normal, mood normal. [] Current Patient Data Vital Signs Vital Signs Date Time Temp Pulse Resp B/P (MAP) Pulse Ox O2 Delivery O2 Flow Rate FiO2 07/10/17 21:26 98.2 90 20 100 Room Air EKG EKG [] Radiology/Procedures Radiology/Procedures [] Course & Med Decision Making Course & Med Decision Making Pertinent Labs and Imaging studies reviewed. (See chart for details). Must keep dental follow up. Keflex 500 tid x 10 days. Tylenol and Ibuprofen for pain. Call in AM for an earlier follow up. [] Final Impression Final Impression 1. Dental Pain 2. Suspect Dental Abscess. Problems: Dragon Disclaimer Dragon Disclaimer This electronic medical record was generated, in whole or in part, using a voice recognition dictation system. PRINCESS ARCHIBALD MD Jul 10, 2017 21:19
[2017-07-10 21:26] VITALS: BP 169/111
[2017-07-10] MEDS ORDERED: CEPH-264 PO (21:38)
[2017-07-10] MEDS ORDERED: oxyCODONE/APAP 5/325 1 TAB TABLET PO ONE (22:00)
[2017-07-10] MEDS ORDERED: cefTRIAXone IM 1 GM VIAL IM ONE (22:00)
== END 2017-07-10 21:56 | disposition home or self-care (01) ==
LOC: ER 21:16
DX: K08.89 Other specified disorders of teeth and supporting structures (principal); I10 Essential (primary) hypertension; I25.10 Atherosclerotic heart disease of native coronary artery without angina pectoris; G43.909 Migraine, unspecified, not intractable, without status migrainosus; Z88.6 Allergy status to analgesic agent; Z88.8 Allergy status to other drugs, medicaments and biological substances
CPT/HCPCS: 96372; 99283; J0696

== ENCOUNTER 2017-07-25 18:16 | Emergency (ER) | payer MEDICARE, MEDICAID ==
[~2017-07-25] VITALS: Ht 175.3 cm; Wt 163.3 kg
--- NOTE | 2017-07-25 18:22 | ED.ADGEN ---
Past History Past Medical History: CAD, Hypertension, Migraines, Other Past Surgical History: , Tubal ligation, Other Smoking: Non-smoker Alcohol Use: None Drug Use: None Adult General Chief Complaint Chief Complaint ".. I got this ear pain...".. " I know my Blood pressure is high..." HPI HPI Patient is a 37 year old female who presents with above hx and complaints of left ear pain. Patient has been cleaning ears Q tips. Does have some irritation of the left ear canal. Patient requesting refill on her narcotics clips. Patient denies any other injury. Patient denies any travel. Patient denies any history of immunosuppression. Patient has had approximately 14 ER visits for multitude of pain complaints. Patient's per paramedics states she also goes to [facility] for pain complaints. Patient normally follows with [facility] -red clinic. Patient does seem to exhibit narcotic seeking behavior. Review of Systems Review of Systems Constitutional: Denies fever or chills [] Eyes: Denies change in visual acuity, redness, or eye pain [] HENT: Denies nasal congestion or sore throat []complaining of left ear pain. Respiratory: Denies cough or shortness of breath [] Cardiovascular: No additional information not addressed in HPI [] GI: Denies abdominal pain, nausea, vomiting, bloody stools or diarrhea [] : Denies dysuria or hematuria [] Musculoskeletal: Denies back pain or joint pain [] Integument: Denies rash or skin lesions [] Neurologic: Denies headache, focal weakness or sensory changes [] Endocrine: Denies polyuria or polydipsia [] All other systems were reviewed and found to be within normal limits, except as documented in this note. Family History Family History Hypertension Current Medications Current Medications Current Medications Medications (Trade) Dose Ordered Sig/Jaden Start Time Stop Time Status Last Admin Dose Admin Acetaminophen (Tylenol) 1,000 mg 1X ONCE 07/25/17 20:00 07/25/17 20:00 DC 07/25/17 19:38 1,000 MG Neomycin/ Polymyxin/ Hydrocortisone (Cortisporin Otic) 2 drop 1X ONCE 07/25/17 19:30 07/25/17 19:31 DC 07/25/17 19:25 2 DROP Allergies Allergies Allergies Coded Allergies Type Severity Reaction Last Updated Verified naproxen Allergy Intermediate 06/05/17 Yes propoxyphene HCl Allergy Intermediate 06/05/17 Yes tramadol Allergy Intermediate 06/05/17 Yes Physical Exam Physical Exam Constitutional: no acute distress, non-toxic appearance. [] HENT: Normocephalic, atraumatic, does have abrasions to left ear canal., oropharynx moist, no oral exudates, nose normal. []Has poor dentition Eyes: PERRLA, EOMI, conjunctiva normal, no discharge. [] Neck: Normal range of motion, no tenderness, supple, no stridor. [] Cardiovascular:Heart rate regular rhythm, no murmur [] Lungs & Thorax: Bilateral breath sounds clear to auscultation [] Abdomen: Bowel sounds normal, soft, no tenderness, no masses, no pulsatile masses. Morbidly obese. Old surgical scar Skin: Warm, dry, no erythema, no rash. [] Back: No tenderness, no CVA tenderness. [] Extremities: No tenderness, no cyanosis, no clubbing, ROM intact, no edema. [] Neurologic: Alert and oriented X 3, normal motor function, normal sensory function, no focal deficits noted. [] Psychologic: Affect normal, judgement normal, mood normal. [] Current Patient Data Vital Signs Vital Signs Date Time Temp Pulse Resp B/P (MAP) Pulse Ox O2 Delivery O2 Flow Rate FiO2 07/25/17 18:36 97.5 90 16 99 Room Air EKG EKG [] Radiology/Procedures Radiology/Procedures [] Course & Med Decision Making Course & Med Decision Making Pertinent Labs and Imaging studies reviewed. (See chart for details). Encouraged patient not to clean ears with Q-tips. Patient may put Cortisporin 2 drops 4 times a day to both ears. Take Tylenol and ibuprofen for pain. Patient advised further narcotic medications must fill by her primary care physician. Explained to patient she has had multiple visits for pain complaints and may have unreasonable expectation for discomfort relief. Encouraged patient to follow-up of her primary care and encouraged patient to follow-up with dentist. Patient reportedly does have a appointment at [facility]. Patient also reportedly has a follow-up appointment with her doctors at the [facility] red clinic on August 13. Encouraged patient to take her hypertensive meds as directed. [] Final Impression Final Impression 1. Complaints of Ear Pain[]-external canal abrasion 2. Hypertension 3. Exhibits narcotic seeking behavior Problems: Dragon Disclaimer Dragon Disclaimer This electronic medical record was generated, in whole or in part, using a voice recognition dictation system. PRINCESS ARCHIBALD MD Jul 25, 2017 18:22
[2017-07-25 18:36] VITALS: BP 179/100
[2017-07-25] MEDS ORDERED: NEOMYCIN/POLYMYXIN/HC OTIC SUSPENSION 10ML BOTTLE. ONE (19:15)
[2017-07-25] MEDS ORDERED: NEOMYCIN/POLYMYXIN/HC OTIC SUSPENSION 10ML BOTTLE. AU ONE (19:30)
[2017-07-25] MEDS ORDERED: ACETAMINOPHEN 500 MG TABLET PO ONE (20:00)
== END 2017-07-25 19:45 | disposition home or self-care (01) ==
LOC: ER 18:16
DX: S00.412A Abrasion of left ear, initial encounter (principal); I10 Essential (primary) hypertension; Z76.5 Malingerer [conscious simulation]; G43.909 Migraine, unspecified, not intractable, without status migrainosus; I25.10 Atherosclerotic heart disease of native coronary artery without angina pectoris; Z88.8 Allergy status to other drugs, medicaments and biological substances; X58.XXXA Exposure to other specified factors, initial encounter; Y93.89 Activity, other specified; Y99.8 Other external cause status; Y92.89 Other specified places as the place of occurrence of the external cause
CPT/HCPCS: 99283

== ENCOUNTER 2017-08-29 18:28 | Emergency (ER) | payer MEDICARE, MEDICAID ==
[~2017-08-29] VITALS: Ht 175.3 cm; Wt 144.2 kg
[2017-08-29 18:34] VITALS: BP 179/100
[2017-08-29] MEDS ORDERED: NEOM10SO7 AU (19:42)
--- NOTE | 2017-08-29 19:42 | PHYS DOC ---
Past History Past Medical History: CAD, Hypertension, Migraines Past Surgical History: , Tubal ligation Smoking: Non-smoker Alcohol Use: None Drug Use: None Adult General Chief Complaint Chief Complaint: EARACHE/EAR PAIN HPI HPI Patient is a 37 year old female who presents with complaint of left ear pain. The patient has had problems with left ear pain off and on for several months. Patient has been diagnosed with otitis externa in the past which she states was helped with use of eardrops. Patient was noted to be using Q-tips at that time which was thought to be causing the patient's symptoms. Patient states that she has not been using Q-tips since her last visit and states that the symptoms have started over the past few days. The patient denies any fever and denies any other complaints. The patient rates pain currently as 9 out of 10 on my evaluation. Patient denies any shortness of breath, chest pain, fever, or change in vision. Review of Systems Review of Systems Constitutional: Denies fever or chills [] Eyes: Denies change in visual acuity, redness, or eye pain [] HENT: Left ear pain, denies nasal congestion or sore throat[] Respiratory: Denies cough or shortness of breath [] Cardiovascular: Denies chest pain or edema[] GI: Denies abdominal pain, nausea, vomiting, bloody stools or diarrhea [] : Denies dysuria or hematuria [] Musculoskeletal: Denies back pain or joint pain [] Integument: Denies rash or skin lesions [] Neurologic: Denies headache, focal weakness or sensory changes [] All other systems were reviewed and found to be within normal limits, except as documented in this note. Allergies Allergies Allergies Coded Allergies Type Severity Reaction Last Updated Verified naproxen Allergy Intermediate 06/05/17 Yes propoxyphene HCl Allergy Intermediate 06/05/17 Yes tramadol Allergy Intermediate 06/05/17 Yes Physical Exam Physical Exam Constitutional: Alert, afebrile, morbidly obese, no acute distress, non-toxic appearance. [] HENT: Normocephalic, atraumatic, bilateral external ears normal, bilateral TMs normal, left ear canal swollen and erythematous with no obvious drainage, right ear canal erythematous with signs of abrasion, oropharynx moist, no oral exudates, nose normal. [] Eyes: PERRLA, EOMI, conjunctiva normal, no discharge. [] Neck: Normal range of motion, no tenderness, supple, no stridor. [] Cardiovascular:Heart rate regular rhythm, no murmur [] Lungs & Thorax: Bilateral breath sounds clear to auscultation [] Abdomen: Bowel sounds normal, soft, no tenderness, no masses, no pulsatile masses. [] Skin: Warm, dry, no erythema, no rash. [] Back: No tenderness, no CVA tenderness. [] Extremities: No tenderness, no cyanosis, no clubbing, ROM intact, no edema. [] Neurologic: Alert and oriented X 3, normal motor function, normal sensory function, no focal deficits noted. [] Current Patient Data Vital Signs Vital Signs Date Time Temp Pulse Resp B/P (MAP) Pulse Ox O2 Delivery O2 Flow Rate FiO2 08/29/17 18:34 98.9 91 16 100 Room Air Lab Results Not performed EKG EKG Not performed[] Radiology/Procedures Radiology/Procedures Not performed[] Course & Med Decision Making Course & Med Decision Making Pertinent Labs and Imaging studies reviewed. (See chart for details) Patient was treated with Cortisporin ear drops to both ears. Patient also given oral hydrocodone the emergency department to assist with pain. The patient will continue on Cortisporin eardrops for outpatient treatment advised to continue with home medications as needed for pain. Recommended follow-up with primary doctor in 3-4 days for reevaluation and return to emergency department for any worsening symptoms. Patient was understanding and in agreement with treatment plan.[] Dragon Disclaimer Dragon Disclaimer This electronic medical record was generated, in whole or in part, using a voice recognition dictation system. Departure Departure: Impression: Primary Impression: Otitis externa Disposition: 01 HOME, SELF-CARE Condition: IMPROVED Referrals: PCP,NO (PCP) Patient Instructions: Otitis Externa Additional Instructions: Follow-up with her primary doctor in 3-4 days. Return to emergency department for any worsening symptoms. Scripts Neomycin/Polymyxin B Sulf/Hc ([id number] EAR SOLN) 10 Ml Solution 4 DROP AU QID for 7 Days, #1 BOTTLE Prov: RIA REYES MD 08/29/17 Problem Qualifiers Primary Impression: Otitis externa Otitis externa type: unspecified type Chronicity: acute Laterality: bilateral Qualified Codes: H60.503 - Unspecified acute noninfective otitis externa, bilateral RIA REYES MD Aug 29, 2017 19:42
[2017-08-29] MEDS: HYDROcodone/APAP 7.5/325MG 1 TAB TABLET PO ONE (20:00)
[2017-08-29] MEDS: NEOMYCIN/POLYMYXIN/HC OTIC SUSPENSION 10ML BOTTLE. AU ONE (20:00)
== END 2017-08-29 20:05 | disposition home or self-care (01) ==
LOC: ER 18:28
DX: H60.93 Unspecified otitis externa, bilateral (principal); G43.909 Migraine, unspecified, not intractable, without status migrainosus; I10 Essential (primary) hypertension; I25.10 Atherosclerotic heart disease of native coronary artery without angina pectoris; Z88.6 Allergy status to analgesic agent; Z88.8 Allergy status to other drugs, medicaments and biological substances
CPT/HCPCS: 99283

== ENCOUNTER 2017-10-17 18:39 | Emergency (ER) | payer MEDICARE, MEDICAID ==
[~2017-10-17] VITALS: Ht 175.3 cm; Wt 136.5 kg
[~2017-10-17 18:39] MED LIST changes: +NEOM10SO7 AU
--- NOTE | 2017-10-17 19:43 | PHYS DOC ---
Past History Past Medical History: Hypertension Past Surgical History: , Other Smoking: Non-smoker Alcohol Use: None Drug Use: None Adult General Chief Complaint Chief Complaint: WOUND CHECK HPI HPI 37-year-old female presents with right axillary mass. Patient has had a history of several abscesses in her right axilla that required I&D. She is concerned that one is forming again. It is quite painful and she can feel some kind of a bump deep below the skin. She states this is the same area that she typically gets one. She presents today hoping to treat it before it gets any worse. She denies fever or chills. She has no other complaints.] Review of Systems Review of Systems Constitutional: Denies fever or chills [] Eyes: Denies change in visual acuity, redness, or eye pain [] HENT: Denies nasal congestion or sore throat [] Respiratory: Denies cough or shortness of breath [] Cardiovascular: No additional information not addressed in HPI [] GI: Denies abdominal pain, nausea, vomiting, bloody stools or diarrhea [] : Denies dysuria or hematuria [] Musculoskeletal: Denies back pain or joint pain [] Integument: Right axillary mass[] Neurologic: Denies headache, focal weakness or sensory changes [] Endocrine: Denies polyuria or polydipsia [] All other systems were reviewed and found to be within normal limits, except as documented in this note. Current Medications Current Medications Current Medications Medications (Trade) Dose Ordered Sig/Jaden Start Time Stop Time Status Last Admin Dose Admin Acetaminophen/ Hydrocodone Bitart (Lortab 5/325) 1 tab 1X ONCE 10/17/17 19:45 10/17/17 19:46 UNV Trimethoprim/ Sulfamethoxazole (Bactrim Ds) 2 tab 1X ONCE 10/17/17 19:45 10/17/17 19:46 UNV Allergies Allergies Allergies Coded Allergies Type Severity Reaction Last Updated Verified naproxen Allergy Intermediate 06/05/17 Yes propoxyphene HCl Allergy Intermediate 06/05/17 Yes tramadol Allergy Intermediate 06/05/17 Yes Physical Exam Physical Exam Constitutional: Well developed, well nourished, no acute distress, non-toxic appearance. [] HENT: Normocephalic, atraumatic, bilateral external ears normal, oropharynx moist, no oral exudates, nose normal. [] Eyes: PERRLA, EOMI, conjunctiva normal, no discharge. [] Neck: Normal range of motion, no tenderness, supple, no stridor. [] Cardiovascular:Heart rate regular rhythm, no murmur [] Lungs & Thorax: Bilateral breath sounds clear to auscultation [] Abdomen: Bowel sounds normal, soft, no tenderness, no masses, no pulsatile masses. [] Skin: Right axillary mass about 1 inch from the surface of the skin. No fluctuance. No surrounding erythema. [] Back: No tenderness, no CVA tenderness. [] Extremities: No tenderness, no cyanosis, no clubbing, ROM intact, no edema. [] Neurologic: Alert and oriented X 3, normal motor function, normal sensory function, no focal deficits noted. [] Psychologic: Affect normal, judgement normal, mood normal. [] Current Patient Data Vital Signs Vital Signs Date Time Temp Pulse Resp B/P (MAP) Pulse Ox O2 Delivery O2 Flow Rate FiO2 10/17/17 18:52 98.1 83 16 100 Room Air EKG EKG [] Radiology/Procedures Radiology/Procedures [] Course & Med Decision Making Course & Med Decision Making Pertinent Labs and Imaging studies reviewed. (See chart for details) I do not believe the patient has a drainable abscess at this time. The area that I palpated feels like inflammation. I will try to treat her with Bactrim to see if this will treat her possible infection. I have informed her that it is likely if this continues to go she'll need another I&D. Also advised she consider follow-up with infectious disease due to having several days and last year. We'll give her a short course of [place] 5/325 for the discomfort. [] Dragon Disclaimer Dragon Disclaimer This electronic medical record was generated, in whole or in part, using a voice recognition dictation system. Departure Departure: Referrals: PCP,NO (PCP) ADRIA WEI DO Oct 17, 2017 19:43
[2017-10-17] MEDS ORDERED: HYDROcodone/APAP 5/325MG 1 TAB TABLET PO ONE (19:45)
[2017-10-17] MEDS ORDERED: SMZ/TMP 800/160MG TABLET. PO ONE (19:45)
[2017-10-17 19:59] VITALS: BP 144/81
[2017-10-17] MEDS ORDERED: SULF1TAB24 PO (20:13)
[2017-10-17] MEDS ORDERED: HYDR-971 PO (20:13)
== END 2017-10-17 20:30 | disposition home or self-care (01) ==
LOC: ER 18:39
DX: R22.31 Localized swelling, mass and lump, right upper limb (principal); I10 Essential (primary) hypertension; Z88.6 Allergy status to analgesic agent; Z88.8 Allergy status to other drugs, medicaments and biological substances
CPT/HCPCS: 99283

== ENCOUNTER 2017-11-13 19:52 | Emergency (ER) | payer MEDICARE, MEDICAID ==
[~2017-11-13] VITALS: Ht 175.3 cm; Wt 156.3 kg
--- NOTE | 2017-11-13 20:29 | PHYS DOC ---
Past History Past Medical History: Hypertension Past Surgical History: , Other Smoking: Non-smoker Alcohol Use: None Drug Use: None Adult General Chief Complaint Chief Complaint: PAIN ON URINATION HPI HPI 37-year-old female presents with dysuria for 2 days. The patient has a known kidney stone for which she has an appointment on Wednesday to discuss placing a stent. Yesterday she started to have burning with urination that has continued today. Her left-sided flank pain is also more intense than yesterday. She is concern for UTI. She denies fever or chills at home. She is taking tramadol for pain control, but it is only helping minimally. Review of Systems Review of Systems Constitutional: Denies fever or chills [] Eyes: Denies change in visual acuity, redness, or eye pain [] HENT: Denies nasal congestion or sore throat [] Respiratory: Denies cough or shortness of breath [] Cardiovascular: No additional information not addressed in HPI [] GI: Left-sided flank pain[] : Dysuria, increased urinary frequency[] Musculoskeletal: Denies back pain or joint pain [] Integument: Denies rash or skin lesions [] Neurologic: Denies headache, focal weakness or sensory changes [] Endocrine: Denies polyuria or polydipsia [] All other systems were reviewed and found to be within normal limits, except as documented in this note. Current Medications Current Medications Current Medications Medications (Trade) Dose Ordered Sig/[facility] Start Time Stop Time Status Last Admin Dose Admin Acetaminophen/ Hydrocodone Bitart (Lortab 5/325) 1 tab 1X ONCE 11/13/17 20:30 11/13/17 20:31 Sodium Chloride 1,000 ml @ 1,000 mls/hr 1X ONCE 11/13/17 20:15 11/13/17 21:14 Allergies Allergies Allergies Coded Allergies Type Severity Reaction Last Updated Verified naproxen Allergy Intermediate 06/05/17 Yes propoxyphene HCl Allergy Intermediate 06/05/17 Yes tramadol Allergy Intermediate 06/05/17 Yes Physical Exam Physical Exam Constitutional: Well developed, morbidly obese, well nourished, no acute distress, non-toxic appearance. [] HENT: Normocephalic, atraumatic, bilateral external ears normal, oropharynx moist, no oral exudates, nose normal. [] Eyes: PERRLA, EOMI, conjunctiva normal, no discharge. [] Neck: Normal range of motion, no tenderness, supple, no stridor. [] Cardiovascular:Heart rate regular rhythm, no murmur [] Lungs & Thorax: Bilateral breath sounds clear to auscultation [] Abdomen: Bowel sounds normal, soft, no tenderness, no masses, no pulsatile masses. [] Skin: Warm, dry, no erythema, no rash. [] Back: CVA tenderness on left. [] Extremities: No tenderness, no cyanosis, no clubbing, ROM intact, no edema. [] Neurologic: Alert and oriented X 3, normal motor function, normal sensory function, no focal deficits noted. [] Psychologic: Affect normal, judgement normal, mood normal. [] EKG EKG [] Radiology/Procedures Radiology/Procedures [] Course & Med Decision Making Course & Med Decision Making Pertinent Labs and Imaging studies reviewed. (See chart for details) Patient's labs are unremarkable. Her urinalysis does show significant blood with some white cells and bacteria. Given the patient's symptoms and the duration, I will treat her with Bactrim DS one twice a day for 7 days. [] Dragon Disclaimer Dragon Disclaimer This electronic medical record was generated, in whole or in part, using a voice recognition dictation system. Departure Departure: Referrals: PCP,NO (PCP) ADRIA WEI DO Nov 13, 2017 20:29
[2017-11-13 20:34] LABS: BACTERIA,URINE FEW /HPF (0-FEW); BILIRUBIN,URINE NEG (NEG); CLARITY,URINE TURBID; COLOR,URINE RED; GLUCOSE,URINE NEG (NEG); NITRITE,URINE NEG (NEG); RBC,URINE >40 /HPF (0-2); SQUAMOUS EPITHELIAL CELL,UR FEW /LPF; UROBILINOGEN,URINE 0.2 mg/dL (0.2 mg/dL)
[2017-11-13 20:46] LABS: BASO % 1 % (0-3); EOS % 1 % (0-3); HEMATOCRIT 33.8 % (36.0-47.0); HEMOGLOBIN 10.9 g/dL (12.0-15.5); LYMPH # 2.4 x10^3/uL (1.0-4.8); LYMPH % 41 % (24-48); MEAN CORPUSCULAR HEMOGLOBIN 24 pg (25-35); MEAN CORPUSCULAR HGB CONC 32 g/dL (31-37); MEAN CORPUSCULAR VOLUME 76 fL (79-100); MONO # 0.4 x10^3/uL (0.0-1.1); MONO % 7 % (0-9); NEUT % 51 % (31-73); PLATELET COUNT 305 x10^3/uL (140-400); RED BLOOD COUNT 4.46 x10^6/uL (3.50-5.40); RED CELL DISTRIBUTION WIDTH 15.3 % (11.5-14.5); WHITE BLOOD COUNT 5.9 x10^3/uL (4.0-11.0)
[2017-11-13] MEDS: HYDROcodone/APAP 5/325MG 1 TAB TABLET PO ONE (20:50)
[2017-11-13] MEDS: IV NORMAL SALINE 1,000ML 1,000 ML IV ONE (20:50)
[2017-11-13 20:53] LABS: CALCIUM 9.2 mg/dL (8.5-10.1); CREATININE 0.8 mg/dL (0.6-1.0); GFR 97.1; POTASSIUM 3.5 mmol/L (3.5-5.1)
[2017-11-13] MEDS ORDERED: SULF1TAB24 PO (21:56)
[2017-11-13] MEDS ORDERED: HYDR-971 PO (22:01)
[2017-11-13] MEDS: SMZ/TMP 800/160MG TABLET. PO ONE (22:03)
[2017-11-14 03:17] VITALS: BP 158/122
== END 2017-11-13 22:05 | disposition home or self-care (01) ==
LOC: ER 19:52
DX: R82.71 Bacteriuria (principal); R31.9 Hematuria, unspecified; R82.99 Other abnormal findings in urine; I10 Essential (primary) hypertension; Z88.6 Allergy status to analgesic agent; Z88.8 Allergy status to other drugs, medicaments and biological substances
CPT/HCPCS: 36415; 80048; 81001; 85025; 87086; 99284; J7030

== ENCOUNTER 2017-11-28 19:21 | Emergency (ER) | payer MEDICARE, MEDICAID ==
[~2017-11-28] VITALS: Ht 175.3 cm; Wt 137.9 kg
--- NOTE | 2017-11-28 19:23 | ED.ADGEN ---
Past History Past Medical History: Hypertension, Kidney Stones, UTI Past Surgical History: , Other Smoking: Non-smoker Alcohol Use: None Drug Use: None Adult General Chief Complaint Chief Complaint " My sciatic is flared up... " HPI HPI Patient is a 37 year old female who presents with above hx and complaints of back pain. Patient states she has chronic back pain ever since her back surgery. Patient states pain is flared up. 3 other changes. Patient denies any changes in defecation or urination. Patient denies any history immunosuppression. Patient denies any new trauma. Patient denies any fever or chills. Patient denies any history of cancer. Review of Systems Review of Systems Constitutional: Denies fever or chills [] Eyes: Denies change in visual acuity, redness, or eye pain [] HENT: Denies nasal congestion or sore throat [] Respiratory: Denies cough or shortness of breath [] Cardiovascular: No additional information not addressed in HPI [] GI: Denies abdominal pain, nausea, vomiting, bloody stools or diarrhea [] : Denies dysuria or hematuria [] Musculoskeletal: Complains of paraspinal back pain and sciatica Integument: Denies rash or skin lesions [] Neurologic: Denies headache, focal weakness or sensory changes [] Endocrine: Denies polyuria or polydipsia [] All other systems were reviewed and found to be within normal limits, except as documented in this note. Family History Family History Noncontributory Current Medications Current Medications Current Medications Medications (Trade) Dose Ordered Sig/[facility] Start Time Stop Time Status Last Admin Dose Admin Methylprednisolone Acetate (DEPO-Medrol IM) 40 mg 1X ONCE 11/28/17 20:30 11/28/17 20:37 DC 11/28/17 20:46 40 MG Morphine Sulfate (Morphine 10mg Syringe) 10 mg 1X ONCE 11/28/17 20:30 11/28/17 20:39 DC 11/28/17 20:46 10 MG Orphenadrine Citrate (Norflex) 60 mg 1X ONCE 11/28/17 20:30 11/28/17 20:37 DC 11/28/17 20:45 60 MG See nursing for home meds Allergies Allergies Allergies Coded Allergies Type Severity Reaction Last Updated Verified naproxen Allergy Intermediate 06/05/17 Yes propoxyphene HCl Allergy Intermediate 06/05/17 Yes tramadol Allergy Intermediate 06/05/17 Yes Physical Exam Physical Exam Constitutional: Moderately acute distress, non-toxic appearance. [] HENT: Normocephalic, atraumatic, bilateral external ears normal, oropharynx moist, no oral exudates, nose normal. [] Eyes: PERRLA, EOMI, conjunctiva normal, no discharge. [] Neck: Normal range of motion, no tenderness, supple, no stridor. [] Cardiovascular:Heart rate regular rhythm, no murmur [] Lungs & Thorax: Bilateral breath sounds clear to auscultation [] Abdomen: Bowel sounds normal, soft, no tenderness, no masses, no pulsatile masses. [] Obese. Skin: Warm, dry, no erythema, no rash. [] Back: Lumbar tenderness, no CVA tenderness. [] Old back surgery scars. Pain seems to follow the right sciatic nerve into the right hip Extremities: No tenderness, no cyanosis, no clubbing, ROM intact, no edema. [] Neurologic: Alert and oriented X 3, normal motor function, normal sensory function, no focal deficits noted. []DTR+ 2 patella and Achilles. Psychologic: Affect anxious, judgement normal, mood normal. [] Current Patient Data Vital Signs Vital Signs Date Time Temp Pulse Resp B/P (MAP) Pulse Ox O2 Delivery O2 Flow Rate FiO2 11/28/17 21:08 97 20 136/81 (99) 98 Room Air 11/28/17 19:25 97.5 Lab Results Laboratory Tests Test 11/28/17 19:18 11/28/17 19:40 POC Urine HCG, Qualitative hcg negative (Negative) Urine Collection Type Unknown Urine Color Yellow Urine Clarity Clear Urine pH 6.0 Urine Specific [place] 1.025 Urine Protein Trace (NEG-TRACE) Urine Glucose (UA) Neg mg/dL (NEG) Urine Ketones (Stick) Trace mg/dL (NEG) Urine Blood Neg (NEG) Urine Nitrite Neg (NEG) Urine Bilirubin Neg (NEG) Urine Urobilinogen Dipstick 0.2 mg/dL (0.2 mg/dL) Urine Leukocyte Esterase Neg (NEG) Urine RBC 0 /HPF (0-2) Urine WBC Occ /HPF (0-4) Urine Squamous Epithelial Cells Mod /LPF Urine Bacteria 0 /HPF (0-FEW) Urine Mucus Slight /LPF Urine Opiates Screen Pos (NEG) Urine Methadone Screen Neg (NEG) Urine Barbiturates Neg (NEG) Urine Phencyclidine Screen Neg (NEG) Urine Amphetamine/Methamphetamine Neg (NEG) Urine Benzodiazepines Screen Neg (NEG) Urine Cocaine Screen Neg (NEG) Urine Cannabinoids Screen Neg (NEG) Urine Ethyl Alcohol Neg (NEG) EKG EKG [] Radiology/Procedures Radiology/Procedures [] Course & Med Decision Making Course & Med Decision Making Pertinent Labs and Imaging studies reviewed. (See chart for details). Ice packs when necessary. Take Tylenol and ibuprofen for pain. For marked pain may take Percocet up to 4 times a day. Flexeril 10 mg up 3 times a day for muscle spasms. Follow-up primary care. Return if any concerns. [] Final Impression Final Impression 1. Sciatica[]-exacerbation 2. Morbid Obesity Dragon Disclaimer Dragon Disclaimer This electronic medical record was generated, in whole or in part, using a voice recognition dictation system. PRINCESS ARCHIBALD MD Nov 28, 2017 19:23
[2017-11-28] MEDS ORDERED: MORPHINE SULFATE 10 MG/ML SYRINGE. SQ ONE (20:30)
[2017-11-28] MEDS ORDERED: ORPHENADRINE CITRATE 60 MG/2 ML VIAL. IM ONE (20:30)
[2017-11-28] MEDS ORDERED: OXYC-323 PO (20:30)
[2017-11-28] MEDS ORDERED: methylPREDNISolone ACETATE 40 MG/ML VIAL. IM ONE (20:30)
[2017-11-28] MEDS ORDERED: CYCL-331 PO (20:44)
[2017-11-28 20:47] LABS: BILIRUBIN,URINE NEG (NEG); CLARITY,URINE CLEAR; COLOR,URINE YELLOW; GLUCOSE,URINE NEG (NEG); NITRITE,URINE NEG (NEG); UROBILINOGEN,URINE 0.2 mg/dL (0.2 mg/dL)
[2017-11-28 20:48] LABS: BACTERIA,URINE 0 /HPF (0-FEW); RBC,URINE 0 /HPF (0-2); SQUAMOUS EPITHELIAL CELL,UR MOD /LPF; WBC,URINE OCC /HPF (0-4)
[2017-11-28 20:50] LABS: AMPHETAMINE/METHAMPHETAMINE NEG (NEG); BARBITURATES NEG (NEG); BENZODIAZEPINES NEG (NEG); CANNABINOIDS NEG (NEG); COCAINE NEG (NEG); METHADONE NEG (NEG); OPIATES POS (NEG); PHENCYCLIDINE NEG (NEG)
[2017-11-28 21:08] VITALS: BP 136/81
== END 2017-11-28 21:10 | disposition home or self-care (01) ==
LOC: ER 19:21
DX: M54.41 Lumbago with sciatica, right side (principal); G89.29 Other chronic pain; I10 Essential (primary) hypertension; E66.01 Morbid (severe) obesity due to excess calories; Z87.442 Personal history of urinary calculi; Z87.440 Personal history of urinary (tract) infections; Z98.890 Other specified postprocedural states; Z68.41 Body mass index [BMI] 40.0-44.9, adult; Z88.6 Allergy status to analgesic agent; Z88.8 Allergy status to other drugs, medicaments and biological substances
CPT/HCPCS: 36415; 80307; 81001; 81025; 96372; 99284; J1030; J2270; J2360; G0479

== ENCOUNTER 2018-01-02 19:26 | Emergency (ER) | payer MEDICARE, MEDICAID ==
[~2018-01-02] VITALS: Ht 175.3 cm; Wt 156.3 kg
[~2018-01-02 19:26] MED LIST changes: +CYCL-331 PO; +OXYC-323 PO
--- NOTE | 2018-01-02 19:30 | ED.ADGEN ---
Past History Past Medical History: Hypertension Past Surgical History: , Lumbar Laminectomy Smoking: Non-smoker Alcohol Use: None Drug Use: None Adult General Chief Complaint Chief Complaint " My back pain really flare up...with these weather changes...It down here at my back scar...I had a disc repair...some times I get flare of pain .. Especially with the weather..." HPI HPI Patient is a 37 year old female who presents with above hx and complaints lumbar sacral pain. Patient localizes the pain and the lumbar sacral joint. Does have a previous back surgery scar. No midline tenderness. Some complaints of mild sciatica complaints. No problems with defecation or urination. Patient denies any recent trauma. Patient denies any history of cancer or immunosuppression. Patient denies any history of fevers. Patient is ambulatory. Patient rates her pain as severe tonight. Patient normally follows at [facility]. Review of Systems Review of Systems Constitutional: Denies fever or chills [] Eyes: Denies change in visual acuity, redness, or eye pain [] HENT: Denies nasal congestion or sore throat [] Respiratory: Denies cough or shortness of breath [] Cardiovascular: No additional information not addressed in HPI [] GI: Denies abdominal pain, nausea, vomiting, bloody stools or diarrhea [] : Denies dysuria or hematuria [] Musculoskeletal: Complaints of back pain or joint pain [] Integument: Denies rash or skin lesions [] Neurologic: Denies headache, focal weakness or sensory changes [] Endocrine: Denies polyuria or polydipsia [] All other systems were reviewed and found to be within normal limits, except as documented in this note. Family History Family History Noncontributory Current Medications Current Medications Current Medications Medications (Trade) Dose Ordered Sig/Jaden Start Time Stop Time Status Last Admin Dose Admin Ketorolac Tromethamine (Toradol Im) 60 mg 1X ONCE 01/02/18 20:30 01/02/18 20:30 DC 01/02/18 20:04 60 MG Methylprednisolone Acetate (DEPO-Medrol IM) 40 mg 1X ONCE 01/02/18 20:30 01/02/18 20:30 DC 01/02/18 20:05 40 MG Morphine Sulfate (Morphine 10mg Syringe) 10 mg 1X ONCE 01/02/18 20:30 01/02/18 20:30 DC 01/02/18 20:04 10 MG Orphenadrine Citrate (Norflex) 60 mg 1X ONCE 01/02/18 20:30 01/02/18 20:30 DC 01/02/18 20:18 60 MG Allergies Allergies Allergies Coded Allergies Type Severity Reaction Last Updated Verified naproxen Allergy Intermediate 06/05/17 Yes propoxyphene HCl Allergy Intermediate 06/05/17 Yes tramadol Allergy Intermediate 01/02/18 Yes Physical Exam Physical Exam Constitutional: Moderately acute distress, non-toxic appearance. [] HENT: Normocephalic, atraumatic, bilateral external ears normal, oropharynx moist, no oral exudates, nose normal. [] Eyes: PERRLA, EOMI, conjunctiva normal, no discharge. [] Neck: Normal range of motion, no tenderness, supple, no stridor. [] Cardiovascular:Heart rate regular rhythm, no murmur [] Lungs & Thorax: Bilateral breath sounds clear to auscultation [] Abdomen: Bowel sounds normal, soft, no tenderness, no masses, no pulsatile masses. Morbidly Obese. No saddle loss. Patient declines rectal exam this time. Old surgery scar. Skin: Warm, dry, no erythema, no rash. [] Back: Lumbar sacral muscle tenderness, no CVA tenderness. [] Old surgery scar midline. Extremities: No tenderness, no cyanosis, no clubbing, ROM intact, trace ankle edema. [] Neurologic: Alert and oriented X 3, normal motor function, normal sensory function, no focal deficits noted. []DTRs are +2 at patella and calf heel tendon. Psychologic: Affect anxious, judgement normal, mood normal. [] Current Patient Data Vital Signs Vital Signs Date Time Temp Pulse Resp B/P (MAP) Pulse Ox O2 Delivery O2 Flow Rate FiO2 01/02/18 20:04 18 98 Room Air 01/02/18 19:48 98.2 106 Lab Results Laboratory Tests Test 01/02/18 19:58 01/02/18 19:59 Urine Collection Type Unknown Urine Color Yellow Urine Clarity Clear Urine pH 6.0 Urine Specific [place] >=1.030 Urine Protein 100 mg/dl (NEG-TRACE) Urine Glucose (UA) Neg mg/dL (NEG) Urine Ketones (Stick) Neg mg/dL (NEG) Urine Blood Small (NEG) Urine Nitrite Neg (NEG) Urine Bilirubin Neg (NEG) Urine Urobilinogen Dipstick 0.2 mg/dL (0.2 mg/dL) Urine Leukocyte Esterase Neg (NEG) Urine RBC Occ /HPF (0-2) Urine WBC Rare /HPF (0-4) Urine Squamous Epithelial Cells Few /LPF Urine Bacteria 0 /HPF (0-FEW) Urine Mucus Slight /LPF Urine Opiates Screen Neg (NEG) Urine Methadone Screen Neg (NEG) Urine Barbiturates Neg (NEG) Urine Phencyclidine Screen Neg (NEG) Urine Amphetamine/Methamphetamine Neg (NEG) Urine Benzodiazepines Screen Neg (NEG) Urine Cocaine Screen Neg (NEG) Urine Cannabinoids Screen Neg (NEG) Urine Ethyl Alcohol Neg (NEG) POC Urine HCG, Qualitative hcg negative (Negative) EKG EKG [] Radiology/Procedures Radiology/Procedures [] Course & Med Decision Making Course & Med Decision Making Pertinent Labs and Imaging studies reviewed. (See chart for details). Patient declines lab or x-rays at this time. Patient use ice packs as needed. Patient to take Tylenol and ibuprofen for pain. For marked pain take Percocet up to 4 times a day. Must follow-up with primary care. Further narcotics must be written to primary care. Return if any concerns. [] Final Impression Final Impression 1. Back []Pain- sciatica Dragon Disclaimer Dragon Disclaimer This electronic medical record was generated, in whole or in part, using a voice recognition dictation system. PRINCESS ARCHIBALD MD Jan 02, 2018 19:30
[2018-01-02 19:48] VITALS: BP 102/72
[2018-01-02] MEDS ORDERED: OXYC-327 PO (19:56)
[2018-01-02] MEDS: KETOROLAC 60 MG/2 ML VIAL. IM ONE (20:04)
[2018-01-02] MEDS: MORPHINE SULFATE 10 MG/ML SYRINGE. SQ ONE (20:04)
[2018-01-02] MEDS: methylPREDNISolone ACETATE 40 MG/ML VIAL. IM ONE (20:05)
[2018-01-02] MEDS: ORPHENADRINE CITRATE 60 MG/2 ML VIAL. IM ONE (20:18)
[2018-01-02 20:25] LABS: BILIRUBIN,URINE NEG (NEG); CLARITY,URINE CLEAR; COLOR,URINE YELLOW; GLUCOSE,URINE NEG (NEG)
[2018-01-02 20:26] LABS: BACTERIA,URINE 0 /HPF (0-FEW); NITRITE,URINE NEG (NEG); RBC,URINE OCC /HPF (0-2); SQUAMOUS EPITHELIAL CELL,UR FEW /LPF; UROBILINOGEN,URINE 0.2 mg/dL (0.2 mg/dL); WBC,URINE RARE /HPF (0-4)
[2018-01-02 20:34] LABS: AMPHETAMINE/METHAMPHETAMINE NEG (NEG); BARBITURATES NEG (NEG); BENZODIAZEPINES NEG (NEG); CANNABINOIDS NEG (NEG); COCAINE NEG (NEG); METHADONE NEG (NEG); OPIATES NEG (NEG); PHENCYCLIDINE NEG (NEG)
== END 2018-01-02 20:25 | disposition home or self-care (01) ==
LOC: ER 19:26
DX: M54.40 Lumbago with sciatica, unspecified side (principal); I10 Essential (primary) hypertension; Z98.890 Other specified postprocedural states; Z88.6 Allergy status to analgesic agent; Z88.8 Allergy status to other drugs, medicaments and biological substances
CPT/HCPCS: 36415; 80307; 81001; 81025; 96372; 99284; J1030; J1885; J2270; J2360; G0479

== ENCOUNTER 2018-01-22 19:36 | Emergency (ER) | payer MEDICARE, MEDICAID ==
[~2018-01-22] VITALS: Ht 175.3 cm; Wt 156.3 kg
[~2018-01-22 19:36] MED LIST changes: +OXYC-327 PO
[2018-01-22 19:45] VITALS: BP 190/109
[2018-01-22] MEDS ORDERED: DEXAMETHASONE SOD PHOS 10 MG/ML VIAL IM ONE (20:00)
[2018-01-22] MEDS ORDERED: ORPHENADRINE CITRATE 60 MG/2 ML VIAL. IM ONE (20:00)
[2018-01-22] MEDS ORDERED: CYCL-331 PO (20:50)
--- NOTE | 2018-01-22 20:50 | PHYS DOC ---
Past History Past Medical History: Hypertension, Other Past Surgical History: Cholecystectomy, , Tubal ligation, Other Smoking: Non-smoker Alcohol Use: None Drug Use: None Adult General Chief Complaint Chief Complaint: BACK PAIN - NO INJURY [facility] HPI Patient is a 38-year-old female who presents with complaint of lower back pain for the last couple of days. Patient states that she has been taking ibuprofen 800 mg and states that has been helping some but she is not getting better. She does indicate that she has a history of chronic back problems having had surgery for herniated disc. She states that periodically she has exacerbations of acute pain in her back. She rates her pain to be an 8 out of 10. She denies any radiation of the pain into her legs and denies any bowel or bladder loss of control. Review of Systems Review of Systems Constitutional: Denies fever or chills [] Respiratory: Denies cough or shortness of breath [] Cardiovascular: No additional information not addressed in HPI [] GI: Denies abdominal pain, nausea, vomiting [] : Denies dysuria or hematuria [] Musculoskeletal: Complains of lower back pain[] Neurologic: Denies headache, focal weakness or sensory changes [] Current Medications Current Medications Current Medications Medications (Trade) Dose Ordered Sig/[facility] Start Time Stop Time Status Last Admin Dose Admin Dexamethasone Sodium Phosphate (Decadron) 10 mg 1X ONCE 01/22/18 20:00 01/22/18 20:04 DC 01/22/18 20:20 10 MG Orphenadrine Citrate (Norflex) 60 mg 1X ONCE 01/22/18 20:00 01/22/18 20:04 DC 01/22/18 20:20 60 MG Allergies Allergies Allergies Coded Allergies Type Severity Reaction Last Updated Verified naproxen Allergy Intermediate 06/05/17 Yes propoxyphene HCl Allergy Intermediate 06/05/17 Yes tramadol Allergy Intermediate 01/02/18 Yes Physical Exam Physical Exam Constitutional: Well developed, well nourished, no acute distress, non-toxic appearance. [] Neck: Normal range of motion, no tenderness, supple, no stridor. [] Cardiovascular:Heart rate regular rhythm, no murmur [] Lungs & Thorax: Bilateral breath sounds clear to auscultation [] Skin: Warm, dry, no erythema, no rash. [] Back: Tenderness to palpation noted to the right lumbar paraspinal musculature. [] Extremities: No tenderness, no cyanosis, no clubbing, ROM intact, no edema. [] Neurologic: Alert and oriented X 3, normal motor function, normal sensory function, no focal deficits noted. [] Current Patient Data Vital Signs Vital Signs Date Time Temp Pulse Resp B/P (MAP) Pulse Ox O2 Delivery O2 Flow Rate FiO2 01/22/18 19:45 97.6 86 18 100 Room Air EKG EKG [] Radiology/Procedures Radiology/Procedures [] Course & Med Decision Making Course & Med Decision Making Pertinent Labs and Imaging studies reviewed. (See chart for details) [] Dragon Disclaimer Dragon Disclaimer This electronic medical record was generated, in whole or in part, using a voice recognition dictation system. Departure Departure: Impression: Primary Impression: Low back pain Disposition: HOME, SELF-CARE Condition: STABLE Referrals: PCP,NO (PCP) Patient Instructions: Back Pain, Adult Scripts Cyclobenzaprine Hcl (CYCLOBENZAPRINE HCL) 10 Mg Tablet 1 TAB PO TID PRN for MUSCLE SPASMS, #30 TAB Prov: MARYLIN GUERRERO Jr. DO 01/22/18 Problem Qualifiers Primary Impression: Low back pain Chronicity: acute Back pain laterality: unspecified Sciatica presence: without sciatica Qualified Codes: M54.5 - Low back pain MARYLIN GUERRERO Jr. DO Jan 22, 2018 20:50
[2018-01-23] MEDS ORDERED: CEPH-264 PO (20:03)
[2018-01-23] MEDS ORDERED: OXYC-327 PO (20:03)
== END 2018-01-22 21:00 | disposition home or self-care (01) ==
LOC: ER 19:36
DX: M54.5 Low back pain (principal); G89.29 Other chronic pain; I10 Essential (primary) hypertension; Z90.49 Acquired absence of other specified parts of digestive tract; Z98.890 Other specified postprocedural states; Z98.51 Tubal ligation status; Z88.8 Allergy status to other drugs, medicaments and biological substances
CPT/HCPCS: 96372; 99284; J1100; J2360

== ENCOUNTER 2018-01-23 19:26 | Emergency (ER) | payer MEDICARE, MEDICAID ==
[~2018-01-23] VITALS: Ht 175.3 cm; Wt 140.6 kg
--- NOTE | 2018-01-23 19:43 | ED.ADGEN ---
Past History Past Medical History: Hypertension, Migraines Past Surgical History: Cholecystectomy, Other Smoking: Non-smoker Alcohol Use: None Drug Use: None Adult General Chief Complaint Chief Complaint " My ears are infected again.. this Lt one got blood coming out.. I got a follow up with ENT when she gets back from maternity leave. .. I know my BP is up... but I have not taken my BP meds tonight.. and the muscle relaxants... are not helping that much with my chronic back pain.. I have had a more pain the last couple days..."... HPI HPI Patient is a 38 year old female who presents with above hx and complaints. Pt. has hx of chronic back pain and prior back surgery. Pt. also has history of chronic ear infections. Currently does have bleeding from left ear. There does appear to be some fluid behind the left TM.s. There is also some external excoriations in left ear. Patient also history of hypertension and in the process of changing her hypertensive meds around. Patient follows with her doctor in the morning for changing her blood pressure meds. Patient has not taken her blood pressure meds tonight. Patient has been taking Flexeril with minimal improvement of her lumbar sacral pain. Pain is located in the paraspinal muscles where she's had back surgery. DTRs are +2 at patella. Patient is ambulatory without problem. Patient does have follow-up appointment for ENT. No recent travel or specific ill contacts. Patient attempt to keep water out of her ears. No hx of fevers. No hx. immunosuppression No travel. No ill contacts. Review of Systems Review of Systems Constitutional: Denies fever or chills [] Eyes: Denies change in visual acuity, redness, or eye pain [] HENT: Denies nasal congestion or sore throat [Pt. ]complaints of ear pain and bleeding Respiratory: Denies cough or shortness of breath [] Cardiovascular: No additional information not addressed in HPI [] GI: Denies abdominal pain, nausea, vomiting, bloody stools or diarrhea [] : Denies dysuria or hematuria [] Musculoskeletal: Complaints of back pain lumbar / sacral Integument: Denies rash or skin lesions [] Neurologic: Denies headache, focal weakness or sensory changes [] Endocrine: Denies polyuria or polydipsia [] All other systems were reviewed and found to be within normal limits, except as documented in this note. Family History Family History Noncontributory Current Medications Current Medications Current Medications Medications (Trade) Dose Ordered Sig/Jaden Start Time Stop Time Status Last Admin Dose Admin Cephalexin HCl (Keflex) 500 mg 1X ONCE 01/23/18 20:15 01/23/18 20:16 DC 01/23/18 20:07 500 MG Neomycin/ Polymyxin/ Hydrocortisone (Cortisporin Otic) 2 drop 1X ONCE 01/23/18 20:00 01/23/18 20:01 DC 01/23/18 20:04 2 DROP Oxycodone/ Acetaminophen (Percocet 7.5/ 325) 1 tab 1X ONCE 01/23/18 20:00 01/23/18 20:01 DC 01/23/18 20:04 1 TAB See nursing for home meds Allergies Allergies Allergies Coded Allergies Type Severity Reaction Last Updated Verified naproxen Allergy Intermediate 06/05/17 Yes propoxyphene HCl Allergy Intermediate 06/05/17 Yes tramadol Allergy Intermediate 01/02/18 Yes Physical Exam Physical Exam Constitutional: Moderately acute distress, non-toxic appearance. [] HENT: Normocephalic, atraumatic, , oropharynx moist, no oral exudates, nose normal. []Bilateral fluid behind TMs. Has excoriation of left external ear canal Eyes: PERRLA, EOMI, conjunctiva normal, no discharge. [] Neck: Normal range of motion, no tenderness, supple, no stridor. [] Cardiovascular:Heart rate regular rhythm, no murmur [] Lungs & Thorax: Bilateral breath sounds clear to auscultation in apex with base crackles Abdomen: Bowel sounds normal, soft, no tenderness, no masses, no pulsatile masses. [] Obese, Old scars. Skin: Warm, dry, no erythema, no rash. [] Back: Paraspinal muscle tenderness Lumbar sacral- near prior surgery scar. no CVA tenderness. [] No reported saddle loss. Extremities: No tenderness, no cyanosis, no clubbing, ROM intact, no edema. [] Neurologic: Alert and oriented X 3, normal motor function, normal sensory function, no focal deficits noted. []DTR + 2 patella. Ambulatory. Psychologic: Affect anxious, judgement normal, mood normal. [] Current Patient Data Vital Signs Vital Signs Date Time Temp Pulse Resp B/P (MAP) Pulse Ox O2 Delivery O2 Flow Rate FiO2 01/23/18 20:34 90 20 149/86 (107) 100 Room Air 01/23/18 19:33 98.4 EKG EKG [] Radiology/Procedures Radiology/Procedures [] Course & Med Decision Making Course & Med Decision Making Pertinent Labs and Imaging studies reviewed. (See chart for details) Keep follow up with primary- review BP meds. Keep follow up ENT. Take Keflex 500 three times a day. Take Cortisporin otic two drops both ears 4 x day . Marked pain Percocet up to 4 x day. Continue Flexeril. Further narcotics must be filled by primary. Must follow up. [] Final Impression Final Impression 1. Chronic Back Pain 2. Otitis 3. Hypertension[] Dragon Disclaimer Dragon Disclaimer This electronic medical record was generated, in whole or in part, using a voice recognition dictation system. PRINCESS ARCHIBALD MD Jan 23, 2018 19:43
[2018-01-23] MEDS ORDERED: NEOMYCIN/POLYMYXIN/HC OTIC SUSPENSION 10ML BOTTLE. AU ONE (20:00)
[2018-01-23] MEDS ORDERED: oxyCODONE/APAP 7.5/325 1 TAB TABLET PO ONE (20:00)
[2018-01-23] MEDS ORDERED: OXYC-327 PO (20:03)
[2018-01-23] MEDS ORDERED: CEPH-264 PO (20:03)
[2018-01-23] MEDS ORDERED: CEPHALEXIN 250 MG CAPSULE PO ONE (20:15)
[2018-01-23 20:34] VITALS: BP 149/86
== END 2018-01-23 20:37 | disposition home or self-care (01) ==
LOC: ER 19:26
DX: G89.29 Other chronic pain (principal); M54.5 Low back pain; I10 Essential (primary) hypertension; G43.909 Migraine, unspecified, not intractable, without status migrainosus; Z90.49 Acquired absence of other specified parts of digestive tract; Z88.8 Allergy status to other drugs, medicaments and biological substances
CPT/HCPCS: 99284

== ENCOUNTER 2018-02-26 18:13 | Emergency (ER) | payer MEDICARE, MEDICAID ==
[~2018-02-26] VITALS: Ht 175.3 cm; Wt 156.3 kg
[~2018-02-26 18:13] MED LIST changes: +HYDR-1179 PO; +HYDR-3165 PO; -HYDR-79 PO; -HYDR-971 PO; -OXYC-323 PO; -OXYC-327 PO; -OXYC-328 PO; +OXYC1TAB15 PO; +OXYC1TAB19 PO; +OXYC1TAB22 PO
[2018-02-26 18:30] VITALS: BP 148/96
[2018-02-26] MEDS ORDERED: Percogesic PO (18:52)
[2018-02-26] MEDS ORDERED: CYCL-331 PO (18:52)
--- NOTE | 2018-02-26 18:52 | PHYS DOC ---
Past History Past Medical History: Hypertension, Migraines Additional Past Medical Histor: chronic back pain Past Surgical History: Cholecystectomy, Other Smoking: Non-smoker Alcohol Use: None Drug Use: None Adult General Chief Complaint Chief Complaint: back pain HPI HPI Patient is a 38 year old female with history of sciatica, and chronic back pain and frequent emergency room visits complaining of increasing chronic back pain for the last 2-3 days as a constant and sharp pain with radiation to bilateral thigh and rated her pain 9/10. Patient states she took [id number] ibuprofen without improvement of her pain. Patient denies urinary and bowel incontinence, fever and chills, abdominal pain, focal neuro deficit. Patient states she has appointment with her back specialist in one month. Review of Systems Review of Systems Constitutional: Denies fever or chills [] Eyes: Denies change in visual acuity, redness, or eye pain [] HENT: Denies nasal congestion or sore throat [] Respiratory: Denies cough or shortness of breath [] Cardiovascular: No additional information not addressed in HPI [] GI: Denies abdominal pain, nausea, vomiting, bloody stools or diarrhea [] : Denies dysuria or hematuria [] Musculoskeletal: Reports back pain[] Integument: Denies rash or skin lesions [] Neurologic: Denies headache, focal weakness or sensory changes [] Endocrine: Denies polyuria or polydipsia [] All other systems were reviewed and found to be within normal limits, except as documented in this note. Allergies Allergies Allergies Coded Allergies Type Severity Reaction Last Updated Verified naproxen Allergy Intermediate 06/05/17 Yes propoxyphene HCl Allergy Intermediate 06/05/17 Yes tramadol Allergy Intermediate 01/02/18 Yes Physical Exam Physical Exam Constitutional: Well nourished, no acute distress, non-toxic appearance, morbidly obese. [] HENT: Normocephalic, atraumatic Eyes: PERRLA, EOMI, conjunctiva normal, no discharge. [] Neck: Normal range of motion, no tenderness, supple, no stridor. [] Cardiovascular:Heart rate regular rhythm, no murmur [] Lungs & Thorax: Bilateral breath sounds clear to auscultation [] Abdomen: Bowel sounds normal, soft, no tenderness, no masses, no pulsatile masses. [] Skin: Warm, dry, no erythema, no rash. [] Back: No midline tenderness, no CVA tenderness, painful range of motion. Extremities: No tenderness, no cyanosis, no clubbing, ROM intact, no edema. [] Neurologic: Alert and oriented X 3, normal motor function, normal sensory function, no focal deficits noted. [] Psychologic: Affect normal, judgement normal, mood normal. [] Current Patient Data Vital Signs Vital Signs Date Time Temp Pulse Resp B/P (MAP) Pulse Ox O2 Delivery O2 Flow Rate FiO2 02/26/18 18:30 97.7 98 16 97 Room Air EKG EKG [] Radiology/Procedures Radiology/Procedures [] Course & Med Decision Making Course & Med Decision Making discharge: I've spoken with the patient and/or caregivers. I've explained the patient's condition, diagnosis and treatment plan based on information available to me at this time. I've answered the patient's and/or caregivers questions and addressed any concerns. The patient and/or caregivers have a good understanding the patient's diagnosis, condition and treatment plan as can be expected at this point. Vital signs have been stabilized. The patient's condition is stable for discharge from the emergency department. The patient will pursue further outpatient evaluation with her primary care provider or other designated consulting physician as outlined in the discharge instructions. Patient and/or caregivers are agreeable to this plan of care and follow-up instructions have been explained in detail. The patient and/or caregivers have received these instructions in written format and expressed understanding of these discharge instructions. The patient and her caregivers are aware that if any significant change in condition or worsening of symptoms should prompt him to immediately return to this of the closest emergency department. If an emergent department is not readily available I would encourage him to call 911. Lilian Disclaimer Lilian Disclaimer This electronic medical record was generated, in whole or in part, using a voice recognition dictation system. Departure Departure: Impression: Primary Impression: Exacerbation of chronic back pain Additional Impression: Morbid obesity Disposition: HOME, SELF-CARE (@1850) Condition: STABLE Referrals: PCP,UNKNOWN (PCP) Patient Instructions: Chronic Back Pain Additional Instructions: Apply ice on your back Follow-up with your primary care physician in 3-5 days Return to ER if not getting better Scripts [Percogesic] No Conflict Check 1 TAB PO QID PRN for PAIN, #14 Prov: SARTHAK DIETZ MD 02/26/18 Problem Qualifiers SARTHAK DIETZ MD Feb 26, 2018 18:52
== END 2018-02-26 19:05 | disposition home or self-care (01) ==
LOC: ER 18:13
DX: G89.29 Other chronic pain (principal); M54.89 Other dorsalgia; E66.01 Morbid (severe) obesity due to excess calories; I10 Essential (primary) hypertension; G43.909 Migraine, unspecified, not intractable, without status migrainosus; Z68.43 Body mass index [BMI] 50.0-59.9, adult; Z90.49 Acquired absence of other specified parts of digestive tract; Z88.6 Allergy status to analgesic agent; Z88.8 Allergy status to other drugs, medicaments and biological substances
CPT/HCPCS: 99283

== ENCOUNTER 2018-03-26 15:20 | Emergency (ER) | payer MEDICARE, MEDICAID ==
[~2018-03-26] VITALS: Ht 175.3 cm; Wt 140.6 kg
[~2018-03-26 15:20] MED LIST changes: +Percogesic PO
[2018-03-26 15:28] VITALS: BP 137/98
--- NOTE | 2018-03-26 16:03 | PHYS DOC ---
Past History Past Medical History: Hypertension, Migraines Additional Past Medical Histor: chronic back pain Past Surgical History: Cholecystectomy, Other Smoking: Non-smoker Alcohol Use: None Drug Use: None Adult General Chief Complaint Chief Complaint: BACK PAIN OR INJURY HPI HPI 38-year-old female presents with dysuria and low back pain. Patient states that for 2 days she has had increased urinary frequency and dysuria. She came in today because now she is having lower back pain with this. She states it does feel similar to previous UTIs. She denies fever or chills. Review of Systems Review of Systems Constitutional: Denies fever or chills [] Eyes: Denies change in visual acuity, redness, or eye pain [] HENT: Denies nasal congestion or sore throat [] Respiratory: Denies cough or shortness of breath [] Cardiovascular: No additional information not addressed in HPI [] GI: Denies abdominal pain, nausea, vomiting, bloody stools or diarrhea [] : Dysuria and urinary frequency[] Musculoskeletal: Denies back pain or joint pain [] Integument: Denies rash or skin lesions [] Neurologic: Denies headache, focal weakness or sensory changes [] Endocrine: Denies polyuria or polydipsia [] All other systems were reviewed and found to be within normal limits, except as documented in this note. Allergies Allergies Allergies Coded Allergies Type Severity Reaction Last Updated Verified naproxen Allergy Intermediate 06/05/17 Yes propoxyphene HCl Allergy Intermediate 06/05/17 Yes tramadol Allergy Intermediate 01/02/18 Yes Physical Exam Physical Exam Constitutional: Well developed, morbidly obese, well nourished, no acute distress, non-toxic appearance. [] HENT: Normocephalic, atraumatic, bilateral external ears normal, oropharynx moist, no oral exudates, nose normal. [] Eyes: PERRLA, EOMI, conjunctiva normal, no discharge. [] Neck: Normal range of motion, no tenderness, supple, no stridor. [] Cardiovascular:Heart rate regular rhythm, no murmur [] Lungs & Thorax: Bilateral breath sounds clear to auscultation [] Abdomen: Bowel sounds normal, soft, no tenderness, no masses, no pulsatile masses. [] Skin: Warm, dry, no erythema, no rash. [] Back: No tenderness, no CVA tenderness. [] Extremities: No tenderness, no cyanosis, no clubbing, ROM intact, no edema. [] Neurologic: Alert and oriented X 3, normal motor function, normal sensory function, no focal deficits noted. [] Psychologic: Affect normal, judgement normal, mood normal. [] Current Patient Data Vital Signs Vital Signs Date Time Temp Pulse Resp B/P (MAP) Pulse Ox O2 Delivery O2 Flow Rate FiO2 03/26/18 15:28 Room Air 03/26/18 15:28 97.9 93 20 95 EKG EKG [] Radiology/Procedures Radiology/Procedures [] Course & Med Decision Making Course & Med Decision Making Pertinent Labs and Imaging studies reviewed. (See chart for details) The patient see urinalysis is suggestive of UTI. I will treat her with Macrobid for 5 days. The patient asked for pain medication before she left. I reviewed with her her [employer] database. The patient has 47 narcotic strips and last 12 months 35 providers. I believe the patient has a drug problem. I shared this concern with the patient and told her to think seriously about rehabilitation. She stated that she will consider it. She is stable for discharge at this time. [] Dragon Disclaimer Dragon Disclaimer This electronic medical record was generated, in whole or in part, using a voice recognition dictation system. Departure Departure: Referrals: NON,STAFF (PCP) Scripts Nitrofurantoin Monohyd/M-Cryst (MACROBID 100 MG CAPSULE) 100 Mg Capsule 1 CAP PO BID for uti, #10 CAP Prov: ADRIA WEI DO 03/26/18 Phenazopyridine Hcl (PYRIDIUM) 100 Mg Tablet 100 MG PO TID PRN for painful urination, #12 TAB Prov: ADRIA WEI DO 03/26/18 ADRAI WEI DO Mar 26, 2018 16:03
[2018-03-26 16:33] LABS: BILIRUBIN,URINE NEG (NEG); CLARITY,URINE CLOUDY; COLOR,URINE YELLOW; GLUCOSE,URINE NEG (NEG); NITRITE,URINE POS (NEG); UROBILINOGEN,URINE 0.2 mg/dL (0.2 mg/dL)
[2018-03-26 16:34] LABS: BACTERIA,URINE MANY /HPF (0-FEW); SQUAMOUS EPITHELIAL CELL,UR MANY /LPF
[2018-03-26] MEDS ORDERED: PHEN100T82 PO (16:42)
[2018-03-26] MEDS ORDERED: NITR100C62 PO (16:43)
== END 2018-03-26 16:45 | disposition home or self-care (01) ==
LOC: ER 15:20
DX: R30.0 Dysuria (principal); M54.5 Low back pain; R35.0 Frequency of micturition; I10 Essential (primary) hypertension; G43.909 Migraine, unspecified, not intractable, without status migrainosus; G89.29 Other chronic pain; Z90.49 Acquired absence of other specified parts of digestive tract; Z88.6 Allergy status to analgesic agent; Z88.8 Allergy status to other drugs, medicaments and biological substances
CPT/HCPCS: 81001; 87086; 99283

== ENCOUNTER 2018-06-24 18:49 | Emergency (ER) | payer MEDICARE, MEDICAID ==
[~2018-06-24] VITALS: Ht 175.3 cm; Wt 136.5 kg
[~2018-06-24 18:49] MED LIST changes: +NITR100C62 PO; +PHEN100T82 PO
--- NOTE | 2018-06-24 18:52 | ED.ADGEN ---
Past History Past Medical History: Anemia, Anxiety, Arthritis, Diabetes, High Cholesterol, Hypertension, Kidney Stones, Migraines, Sciatica, UTI, Other Additional Past Medical Histor: chronic back pain Past Surgical History: Cholecystectomy, Lumbar Laminectomy, Other Smoking: Non-smoker Alcohol Use: None Drug Use: None Adult General Chief Complaint Chief Complaint ".. I think .. I may be having a kidney stone.. or flare of my chronic back pain... I was at [facility] recently.. for kidneys stones... ".... " I ve been taking Ibuprofen.. but I still got pain...:''..." I usually go to the Gold clinic at [facility].. they take care of my problems.. mainly HTN, DM other stuff,...usually every two weeks or so..." HPI HPI Patient is a 38 year old female who presents with above hx and complaints of severe Lt. flank pain., Patient has had previous renal stones. Patient also has chronic back pain and sciatica. Patient the past has followed regularly at [facility]. Patient denies any trauma. Patient denies any travel. Patient denies any fever or chills. Patient denies any immunosuppression. Patient does have a history of morbid obesity diabetes, hypertension, elevated cholesterol. In UTIs. Patient normally follows at [facility]. Pt. has had a Laminectomy Lumbar in 2015 at [facility]. She denies any problems with urination or defecation. Review of Systems Review of Systems Constitutional: Denies fever or chills [] Eyes: Denies change in visual acuity, redness, or eye pain [] HENT: Denies nasal congestion or sore throat [] Respiratory: Denies cough or shortness of breath [] Cardiovascular: No additional information not addressed in HPI [] GI: Denies abdominal pain, nausea, vomiting, bloody stools or diarrhea [] : Denies dysuria or hematuria [] Musculoskeletal: Complains of back pain or joint pain []complains of left flank back pain Integument: Denies rash or skin lesions [] Neurologic: Denies headache, focal weakness or sensory changes [] Endocrine: Denies polyuria or polydipsia [] All other systems were reviewed and found to be within normal limits, except as documented in this note. Family History Family History Diabetes hypertension Current Medications Current Medications Current Medications Medications (Trade) Dose Ordered Sig/Jaden Start Time Stop Time Status Last Admin Dose Admin Famotidine (Pepcid Vial) 20 mg 1X ONCE 06/24/18 19:45 06/24/18 19:46 DC 06/24/18 19:46 20 MG Ketorolac Tromethamine (Toradol 30mg Vial) 30 mg 1X ONCE 06/24/18 19:45 06/24/18 19:46 DC 06/24/18 19:46 30 MG Lactated Ringer's 1,000 ml @ 1,000 mls/hr Q1H 06/24/18 19:19 06/24/18 20:18 DC 06/24/18 19:46 1,000 MLS/HR Ondansetron HCl (Zofran) 8 mg 1X ONCE 06/24/18 19:45 06/24/18 19:46 DC 06/24/18 19:47 8 MG Orphenadrine Citrate (Norflex) 60 mg 1X ONCE 06/24/18 21:30 06/24/18 21:30 DC Trimethoprim/ Sulfamethoxazole (Bactrim Ds) 1 tab 1X ONCE 06/24/18 20:15 06/24/18 20:16 DC 06/24/18 20:12 1 TAB Allergies Allergies Allergies Coded Allergies Type Severity Reaction Last Updated Verified naproxen Allergy Intermediate 06/05/17 Yes propoxyphene HCl Allergy Intermediate 06/05/17 Yes tramadol Allergy Intermediate 01/02/18 Yes Physical Exam Physical Exam Constitutional: Reports markedly acute distress, non-toxic appearance. [] HENT: Normocephalic, atraumatic, bilateral external ears normal, oropharynx moist, no oral exudates, nose normal. [] Eyes: PERRLA, EOMI, conjunctiva normal, no discharge. [] Neck: Normal range of motion, no tenderness, supple, no stridor. [ More than 17 inches circumference Cardiovascular:Heart rate regular rhythm, no murmur []PMI to the left Lungs & Thorax: Bilateral breath sounds equal at apexes, some basilar crackles on auscultation [] Abdomen: Bowel sounds normal, soft, flank tenderness,distended, no masses, no pulsatile masses. [] Declines rectal or pelvic exam at this time. Old surgery scar.s . Morbidly obese. Umbilicus hernia. Femoral hernias. Skin: Warm, dry, no erythema, no rash. [] Back: No tenderness, no CVA tenderness. [] Old lumbar surgery scar. Pain follows the Lt sciatic root. Extremities: No tenderness, no cyanosis, no clubbing, ROM intact, bilateral ankle edema. [] Straight leg lift on left increases sciatic pain on left. No cording noted. Neurologic: Alert and oriented X 3, normal motor function, normal sensory function, no focal deficits noted. []DTR+ 2 patella. Psychologic: Affect anxious, judgement normal, mood normal. [] Current Patient Data Vital Signs Vital Signs Date Time Temp Pulse Resp B/P (MAP) Pulse Ox O2 Delivery O2 Flow Rate FiO2 06/24/18 21:15 81 20 179/98 (125) 100 Room Air 06/24/18 19:00 97.5 Lab Results Laboratory Tests Test 06/24/18 19:00 06/24/18 19:05 06/24/18 19:40 Urine Collection Type Unknown Urine Color Yellow Urine Clarity Hazy Urine pH 6.5 Urine Specific [place]ga 1.020 Urine Protein 100 mg/dl (NEG-TRACE) Urine Glucose (UA) Neg mg/dL (NEG) Urine Ketones (Stick) 40 mg/dL (NEG) Urine Blood Mod (NEG) Urine Nitrite Neg (NEG) Urine Bilirubin Neg (NEG) Urine Urobilinogen Dipstick 0.2 mg/dL (0.2 mg/dL) Urine Leukocyte Esterase Trace (NEG) Urine RBC 3-5 /HPF (0-2) Urine WBC 0 /HPF (0-4) Urine Squamous Epithelial Cells Occ /LPF Urine Bacteria 0 /HPF (0-FEW) Urine Mucus Slight /LPF Urine Opiates Screen Neg (NEG) Urine Methadone Screen Neg (NEG) Urine Barbiturates Neg (NEG) Urine Phencyclidine Screen Neg (NEG) Urine Amphetamine/Methamphetamine Neg (NEG) Urine Benzodiazepines Screen Neg (NEG) Urine Cocaine Screen Neg (NEG) Urine Cannabinoids Screen Neg (NEG) Urine Ethyl Alcohol Neg (NEG) POC Urine HCG, Qualitative hcg negative (Negative) White Blood Count 7.7 x10^3/uL (4.0-11.0) Red Blood Count 4.47 x10^6/uL (3.50-5.40) Hemoglobin 10.9 g/dL (12.0-15.5) L Hematocrit 34.3 % (36.0-47.0) L Mean Corpuscular Volume 77 fL (79-100) L Mean Corpuscular Hemoglobin 24 pg (25-35) L Mean Corpuscular Hemoglobin Concent 32 g/dL (31-37) Red Cell Distribution Width 16.7 % (11.5-14.5) H Platelet Count 295 x10^3/uL (140-400) Neutrophils (%) (Auto) 64 % (31-73) Lymphocytes (%) (Auto) 29 % (24-48) Monocytes (%) (Auto) 6 % (0-9) Eosinophils (%) (Auto) 1 % (0-3) Basophils (%) (Auto) 0 % (0-3) Neutrophils # (Auto) 4.9 x10^3uL (1.8-7.7) Lymphocytes # (Auto) 2.2 x10^3/uL (1.0-4.8) Monocytes # (Auto) 0.5 x10^3/uL (0.0-1.1) Eosinophils # (Auto) 0.0 x10^3/uL (0.0-0.7) Basophils # (Auto) 0.0 x10^3/uL (0.0-0.2) Prothrombin Time 10.0 SEC (9.4-11.4) Prothrombin Time INR 1.0 (0.9-1.1) PTT 23 SEC (23-33) Sodium Level 142 mmol/L (136-145) Potassium Level 3.4 mmol/L (3.5-5.1) L Chloride Level 106 mmol/L (98-107) Carbon Dioxide Level 26 mmol/L (21-32) Anion Gap 10 (6-14) Blood Urea Nitrogen 12 mg/dL (7-20) Creatinine 0.6 mg/dL (0.6-1.0) Estimated GFR (Cockcroft-Gault) 134.7 Glucose Level 77 mg/dL (70-99) Calcium Level 9.0 mg/dL (8.5-10.1) Total Bilirubin 0.3 mg/dL (0.2-1.0) Direct Bilirubin 0.1 mg/dL (0.0-0.2) Aspartate Amino Transferase (AST) 15 U/L (15-37) Alanine Aminotransferase (ALT) 13 U/L (14-59) L Alkaline Phosphatase 78 U/L (46-116) Total Protein 8.0 g/dL (6.4-8.2) Albumin 3.4 g/dL (3.4-5.0) Lipase 39 U/L (73-393) L EKG EKG [] Radiology/Procedures Radiology/Procedures My interpretation acute abdomen film shows no acute cardiopulmonary findings. Borderline line cardiomegaly. Some basilar atelectasis. Abdomen film shows no free air under the diaphragm. There is nonstick bowel gas pattern. Does have findings of clips right upper abdomen and lower pelvic area. Does have findings of prior laminectomy of the lumbar spine. Does have findings consistent with degenerative joint changes. CT of spine shows no obvious fracture dislocation. Does have degenerative joint changes. There is findings of previous laminectomy. Does have [address] shows prior small fat hernias umbilicus and bilateral inguinal. No findings of obstructing kidney stones. Does have inter renal stones. [] Course & Med Decision Making Course & Med Decision Making Pertinent Labs and Imaging studies reviewed. (See chart for details) Patient push fluids. Patient push vitamin C drinks and fruit juices. Patient follow-up with primary care. Return if any concerns. Patient take Bactrim DS twice day for the next 3 days. Patient follow up urine cultures. Patient review labs completed here at [facility] with her Gold clinic at [facility]. [] Final Impression Final Impression 1. Acute on Chronic Back Pain[]-appears to be sciatic on left 2. Morbidly obese 3. Mild urinary tract infection 4. Anemia -microcytic hypochromic- hemoglobin 10.9,/77Hvol/24 Hc 5. Degenerative joint changes-lumbar 6. No current obstructing renal stones- does stone inter renal 7. Some Behavior may indicated Narcotic Seeking Behaviors. 8. Constipation Dragon Disclaimer Dragon Disclaimer This electronic medical record was generated, in whole or in part, using a voice recognition dictation system. Dragon Disclaimer This chart was dictated in whole or in part using Voice Recognition software in a busy, high-work load, and often noisy Emergency Department environment. It may contain unintended and wholly unrecognized errors or omissions. Discharge Summary Visit Information Final Diagnosis Problems Medical Problems: (1) Acute exacerbation of chronic low back pain Status: Acute (2) Urinary tract infection Status: Acute Brief Hospital Course Allergies Allergies Coded Allergies Type Severity Reaction Last Updated Verified naproxen Allergy Intermediate 06/05/17 Yes propoxyphene HCl Allergy Intermediate 06/05/17 Yes tramadol Allergy Intermediate 01/02/18 Yes Vital Signs Vital Signs Date Time Temp Pulse Resp B/P (MAP) Pulse Ox O2 Delivery O2 Flow Rate FiO2 06/24/18 21:15 81 20 179/98 (125) 100 Room Air 06/24/18 19:00 97.5 Lab Results Laboratory Tests Test 06/24/18 19:00 06/24/18 19:05 06/24/18 19:40 Urine Collection Type Unknown Urine Color Yellow Urine Clarity Hazy Urine pH 6.5 Urine Specific [place]ga 1.020 Urine Protein 100 mg/dl (NEG-TRACE) Urine Glucose (UA) Neg mg/dL (NEG) Urine Ketones (Stick) 40 mg/dL (NEG) Urine Blood Mod (NEG) Urine Nitrite Neg (NEG) Urine Bilirubin Neg (NEG) Urine Urobilinogen Dipstick 0.2 mg/dL (0.2 mg/dL) Urine Leukocyte Esterase Trace (NEG) Urine RBC 3-5 /HPF (0-2) Urine WBC 0 /HPF (0-4) Urine Squamous Epithelial Cells Occ /LPF Urine Bacteria 0 /HPF (0-FEW) Urine Mucus Slight /LPF Urine Opiates Screen Neg (NEG) Urine Methadone Screen Neg (NEG) Urine Barbiturates Neg (NEG) Urine Phencyclidine Screen Neg (NEG) Urine Amphetamine/Methamphetamine Neg (NEG) Urine Benzodiazepines Screen Neg (NEG) Urine Cocaine Screen Neg (NEG) Urine Cannabinoids Screen Neg (NEG) Urine Ethyl Alcohol Neg (NEG) Bedside Urine HCG, Qualitative hcg negative (Negative) White Blood Count 7.7 x10^3/uL (4.0-11.0) Red Blood Count 4.47 x10^6/uL (3.50-5.40) Hemoglobin 10.9 g/dL (12.0-15.5) Hematocrit 34.3 % (36.0-47.0) Mean Corpuscular Volume 77 fL (79-100) Mean Corpuscular Hemoglobin 24 pg (25-35) Mean Corpuscular Hemoglobin Concent 32 g/dL (31-37) Red Cell Distribution Width 16.7 % (11.5-14.5) Platelet Count 295 x10^3/uL (140-400) Neutrophils (%) (Auto) 64 % (31-73) Lymphocytes (%) (Auto) 29 % (24-48) Monocytes (%) (Auto) 6 % (0-9) Eosinophils (%) (Auto) 1 % (0-3) Basophils (%) (Auto) 0 % (0-3) Neutrophils # (Auto) 4.9 x10^3uL (1.8-7.7) Lymphocytes # (Auto) 2.2 x10^3/uL (1.0-4.8) Monocytes # (Auto) 0.5 x10^3/uL (0.0-1.1) Eosinophils # (Auto) 0.0 x10^3/uL (0.0-0.7) Basophils # (Auto) 0.0 x10^3/uL (0.0-0.2) Prothrombin Time 10.0 SEC (9.4-11.4) Prothromb Time International Ratio 1.0 (0.9-1.1) Activated Partial Thromboplast Time 23 SEC (23-33) Sodium Level 142 mmol/L (136-145) Potassium Level 3.4 mmol/L (3.5-5.1) Chloride Level 106 mmol/L (98-107) Carbon Dioxide Level 26 mmol/L (21-32) Anion Gap 10 (6-14) Blood Urea Nitrogen 12 mg/dL (7-20) Creatinine 0.6 mg/dL (0.6-1.0) Estimated GFR (Cockcroft-Gault) 134.7 Glucose Level 77 mg/dL (70-99) Calcium Level 9.0 mg/dL (8.5-10.1) Total Bilirubin 0.3 mg/dL (0.2-1.0) Direct Bilirubin 0.1 mg/dL (0.0-0.2) Aspartate Amino Transf (AST/SGOT) 15 U/L (15-37) Alanine Aminotransferase (ALT/SGPT) 13 U/L (14-59) Alkaline Phosphatase 78 U/L (46-116) Total Protein 8.0 g/dL (6.4-8.2) Albumin 3.4 g/dL (3.4-5.0) Lipase 39 U/L (73-393) Brief Hospital Course Ms. Curtis is a 38 old female who presented with hx of acute on chronic back pain presentation. Pt. to follow up at [facility] Discharge Information Condition at Discharge: Improved, Stable Disposition/Orders: D/C to Home Dischare Medications Current Medications Lactated Ringer's 1,000 ml @ 1,000 mls/hr Q1H IV Last administered on at 19:46; Admin Dose 1,000 MLS/HR; Start 06/24/18 at 19:19; Stop 06/24/18 at 20:18; Status DC Ondansetron HCl (Zofran) 8 mg 1X ONCE IV Last administered on 06/24/18at 19:47 ; Admin Dose 8 MG; Start 06/24/18 at 19:45; Stop 06/24/18 at 19:46; Status DC Famotidine (Pepcid Vial) 20 mg 1X ONCE IVP Last administered on 06/24/18at 19: 46; Admin Dose 20 MG; Start 06/24/18 at 19:45; Stop 06/24/18 at 19:46; Status DC Ketorolac Tromethamine (Toradol 30mg Vial) 30 mg 1X ONCE IV Last administered on 06/24/18at 19:46; Admin Dose 30 MG; Start 06/24/18 at 19:45; Stop 06/24/18 at 19:46; Status DC Trimethoprim/ Sulfamethoxazole (Bactrim Ds) 1 tab 1X ONCE PO Last administered on 06/24/18at 20:12; Admin Dose 1 TAB; Start 06/24/18 at 20:15; Stop 06/24/18 at 20:16; Status DC Orphenadrine Citrate (Norflex) 60 mg 1X ONCE IM ; Start 06/24/18 at 21:30; Stop 06/24/18 at 21:30; Status DC Active Scripts Active Cyclobenzaprine Hcl 5 Mg Tablet 5 Mg PO TIDP Bactrim Ds Tablet (Sulfamethoxazole/Trimethoprim) 1 Each Tablet 1 Tab PO BID 3 Days Hydrocodone-Ibuprofen 7.5-200 (Hydrocodone/Ibuprofen) 1 Each Tablet 1 Tab PO PRN Q6HRS PRN Macrobid 100 Mg Capsule (Nitrofurantoin Monohyd/M-Cryst) 100 Mg Capsule 1 Cap PO BID Pyridium (Phenazopyridine Hcl) 100 Mg Tablet 100 Mg PO TID PRN [Percogesic] 1 Tab PO QID PRN Cyclobenzaprine Hcl 10 Mg Tablet 10 Mg PO TIDPC PRN Ibuprofen 800 Mg Tablet 1 Tab PO TID One every 8 hours as needed for pain Reported Lisinopril-Hctz 20-12.5 Mg Tab (Lisinopril/Hydrochlorothiazide) 1 Each Tablet 1 Tab PO DAILY Coreg (Carvedilol) 12.5 Mg Tablet 12.5 Mg PO BID Aspir 81 (Aspirin) 81 Mg Tablet. 81 Mg PO PRINCESS ARCHIBALD MD Jun 24, 2018 18:52
[2018-06-24 19:22] LABS: BILIRUBIN,URINE NEG (NEG); CLARITY,URINE HAZY; COLOR,URINE YELLOW; GLUCOSE,URINE NEG (NEG)
[2018-06-24 19:23] LABS: BACTERIA,URINE 0 /HPF (0-FEW); NITRITE,URINE NEG (NEG); SQUAMOUS EPITHELIAL CELL,UR OCC /LPF; UROBILINOGEN,URINE 0.2 mg/dL (0.2 mg/dL); WBC,URINE 0 /HPF (0-4)
[2018-06-24 19:29] LABS: AMPHETAMINE/METHAMPHETAMINE NEG (NEG); BARBITURATES NEG (NEG); BENZODIAZEPINES NEG (NEG); CANNABINOIDS NEG (NEG); COCAINE NEG (NEG); METHADONE NEG (NEG); OPIATES NEG (NEG); PHENCYCLIDINE NEG (NEG)
[2018-06-24] MEDS: FAMOTIDINE 20 MG/2 ML VIAL IVP ONE (19:46)
[2018-06-24] MEDS: KETOROLAC 30 MG/ML VIAL. IV ONE (19:46)
[2018-06-24] MEDS: IV RINGERS SOLUTION,LACTATED 1,000 ML IV SCH (19:46)
[2018-06-24] MEDS: ONDANSETRON PF 4 MG/2 ML VIAL. IV ONE (19:47)
[2018-06-24 20:05] LABS: BASO % 0 % (0-3); EOS % 1 % (0-3); HEMATOCRIT 34.3 % (36.0-47.0); HEMOGLOBIN 10.9 g/dL (12.0-15.5); LYMPH # 2.2 x10^3/uL (1.0-4.8); LYMPH % 29 % (24-48); MEAN CORPUSCULAR HEMOGLOBIN 24 pg (25-35); MEAN CORPUSCULAR HGB CONC 32 g/dL (31-37); MEAN CORPUSCULAR VOLUME 77 fL (79-100); MONO # 0.5 x10^3/uL (0.0-1.1); MONO % 6 % (0-9); NEUT # 4.9 x10^3uL (1.8-7.7); NEUT % 64 % (31-73); PLATELET COUNT 295 x10^3/uL (140-400); RED BLOOD COUNT 4.47 x10^6/uL (3.50-5.40); RED CELL DISTRIBUTION WIDTH 16.7 % (11.5-14.5); WHITE BLOOD COUNT 7.7 x10^3/uL (4.0-11.0)
[2018-06-24] MEDS: SMZ/TMP 800/160MG TABLET. PO ONE (20:12)
[2018-06-24 20:19] LABS: ALBUMIN 3.4 g/dL (3.4-5.0); CREATININE 0.6 mg/dL (0.6-1.0); DIRECT BILIRUBIN 0.1 mg/dL (0.0-0.2); GFR 134.7; POTASSIUM 3.4 mmol/L (3.5-5.1); TOTAL BILIRUBIN 0.3 mg/dL (0.2-1.0)
[2018-06-24] MEDS ORDERED: CYCL5TAB PO (20:42)
[2018-06-24] MEDS ORDERED: SULF1TAB24 PO (20:42)
[2018-06-24] MEDS ORDERED: HYDR-1179 PO (20:42)
--- NOTE | 2018-06-24 20:58 | RAD ---
EXAM: CT Abdomen and Pelvis without IV contrast CLINICAL HISTORY: Left flank and abdomen pain, hematuria. Hx: Renal stones. COMPARISON: none TECHNIQUE: Helical CT of the abdomen and pelvis was performed without intravenous contrast. Axial, coronal and sagittal reformatted images were generated. PQRS compliance statement - One or more of the following individualized dose reduction techniques were utilized for this study: 1. Automated exposure control 2. Adjustment of the mA and/or kV according to patient size 3. Use of iterative reconstruction technique FINDINGS: Lack of intravenous contrast limits evaluation of solid organs, vasculature, and lymph nodes. Lower chest: Linear opacities in the lingula and middle lobe likely scarring/atelectasis. Abdomen and Pelvis: No focal liver lesion. Accounting for postcholecystectomy state, no biliary ductal dilatation. Spleen is unremarkable. Adrenal glands and pancreas are unremarkable. A 5 mm right upper pole nonobstructing renal calculus is seen. Several smaller nonobstructing left lower pole renal calculus. Hypodense subcentimeter left lower pole renal lesion is too small to accurately characterize. No hydronephrosis or hydroureter. No ureteral or bladder calculi. Appendix is normal. No small or large bowel dilatation. Moderate colonic stool content. Mild fat infiltration about the bladder, possibly cystitis. Small fat-containing periumbilical hernia. Small bilateral fat-containing inguinal hernias are seen. No abdominal pelvic ascites. Bones: Please see dedicated CT lumbar spine performed concurrently for focal lumbar spine results. IMPRESSION: 1. Bilateral nonobstructing renal calculi are seen. No definite ureteral or bladder calculus is identified. 2. Small fat-containing periumbilical hernia 3. Small fat-containing bilateral inguinal hernias. 4. Mild fat infiltration about the bladder, possibly cystitis. Electronically signed by: Jeremy Hernandez MD (06/24/2018 8:54 PM) [facility]
--- NOTE | 2018-06-24 21:07 | RAD ---
EXAM: CT lumbar spine without IV contrast CLINICAL HISTORY:Lower back and left sided flank and abdomen pain, hematuria COMPARISON: None available. TECHNIQUE: Helical CT was performed through the lumbar spine. Axial, coronal and sagittal reformatted images were generated. PQRS compliance statement - One or more of the following individualized dose reduction techniques were utilized for this study: 1. Automated exposure control 2. Adjustment of the mA and/or kV according to patient size 3. Use of iterative reconstruction technique FINDINGS: There is transitional lumbosacral anatomy. There are 6 nonrib-bearing lumbar-type vertebral bodies. For the purposes of this report the posterior and interbody fusion is seen at L5-L6. Vertebral body heights are preserved. Disc heights are otherwise grossly preserved. No spondylolisthesis. Please see concurrently performed CT abdomen and pelvis report for full visceral findings. IMPRESSION: 1. No evidence for acute fracture or subluxation. 2. Transitional lumbosacral anatomy with 6 nonrib-bearing lumbar-type vertebral bodies. Electronically signed by: Jeremy Hernandez MD (06/24/2018 9:04 PM) [facility]
[2018-06-24 21:15] VITALS: BP 179/98
[2018-06-24] MEDS: ORPHENADRINE CITRATE 60 MG/2 ML VIAL. IM ONE (21:23)
--- NOTE | 2018-06-24 21:32 | RAD ---
EXAM: Frontal view of the chest, AP views of the abdomen in upright and supine positions. CLINICAL INDICATION: Flank pain- hx renal stones, hx chronic back pain COMPARISON: CT 03/04/2012 FINDINGS and IMPRESSION: The heart is not enlarged. Mediastinal and hilar contours are normal. No focal parenchymal airspace opacity. No pleural effusion or pneumothorax. No abnormal small or large bowel dilatation. Moderate colonic stool content. No abnormal soft tissue mass effect. No suspicious calcifications are seen. No free intraperitoneal gas. Cholecystectomy clips are seen. Electronically signed by: Jeremy Hernandez MD (06/24/2018 9:29 PM) [facility]
== END 2018-06-24 21:20 | disposition home or self-care (01) ==
LOC: ER 18:49
DX: M54.42 Lumbago with sciatica, left side (principal); G89.29 Other chronic pain; N39.0 Urinary tract infection, site not specified; E66.01 Morbid (severe) obesity due to excess calories; D50.9 Iron deficiency anemia, unspecified; M47.896 Other spondylosis, lumbar region; K59.00 Constipation, unspecified; F41.9 Anxiety disorder, unspecified; M19.90 Unspecified osteoarthritis, unspecified site; E11.9 Type 2 diabetes mellitus without complications; E78.00 Pure hypercholesterolemia, unspecified; I10 Essential (primary) hypertension; G43.909 Migraine, unspecified, not intractable, without status migrainosus; Z87.442 Personal history of urinary calculi; Z68.41 Body mass index [BMI] 40.0-44.9, adult; Z86.2 Personal history of diseases of the blood and blood-forming organs and certain disorders involving the immune mechanism; Z87.440 Personal history of urinary (tract) infections; Z98.890 Other specified postprocedural states; Z90.49 Acquired absence of other specified parts of digestive tract; Z88.6 Allergy status to analgesic agent; Z88.8 Allergy status to other drugs, medicaments and biological substances
CPT/HCPCS: 36415; 74022; 74176; 80048; 80076; 80307; 81001; 81025; 83690; 85025; 85610; 85730; 87086; 87186; 96374; 96375; J1885; J2405; J3490; J7120; 99284-25